=== PATIENT | male | born 1965 | race Caucasian/White ===

== ENCOUNTER 2017-05-12 05:24 | Emergency (ER) | payer BC, OTHER ==
[2017-05-12 05:35] VITALS: BP 143/90; PULSE 82; TEMP 97.8; O2SAT 99
--- NOTE | 2017-05-12 05:54 | C.PDOC ---
History Of Present Illness 51 year old male with PMHx of chronic back pain presents to the ED c/o intermittent lower back pain for the past 3 days. Patient reports he exacerbated his back pain after lifting a heavy water case. Patient denies trauma, bowel incontinence, urinary incontinence, saddle anesthesia, weakness, numbness. Time Seen by Provider: 05/12/17 05:45 Chief Complaint (Nursing): Back Pain History Per: Patient History/Exam Limitations: no limitations Onset/Duration Of Symptoms: Days Current Symptoms Are (Timing): Still Present Quality Of Discomfort: "Pain" Previous Symptoms: Back Pain Exacerbating Factor(s): Movement Recent travel outside of the [place]: No Additional History Per: Patient Past Medical History Reviewed: Historical Data, Nursing Documentation, Vital Signs Vital Signs: Last Vital Signs Temp 97.8 F 05/12/17 05:34 Pulse 82 05/12/17 05:34 Resp 18 05/12/17 05:34 BP 143/90 05/12/17 05:34 Pulse Ox 99 05/12/17 06:02 - Medical History PMH: No Chronic Diseases Surgical History: Appendectomy Family History: States: No Known Family Hx - Social History Hx Alcohol Use: No Hx Substance Use: No - Immunization History Hx Tetanus Toxoid Vaccination: No Hx Influenza Vaccination: No Hx Pneumococcal Vaccination: No Review Of Systems Constitutional: Negative for: Fever, Chills Musculoskeletal: Positive for: Back Pain Neurological: Negative for: Weakness, Numbness Physical Exam - Physical Exam Appears: Non-toxic, No Acute Distress Skin: Normal Color, Warm, Dry Head: Atraumatic, Normacephalic Eye(s): bilateral: Normal Inspection, PERRL Nose: No Discharge Oral Mucosa: Moist Neck: Normal ROM, Supple Chest: Symmetrical Cardiovascular: Rhythm Regular, No Murmur Respiratory: Normal Breath Sounds, No Rales, No Rhonchi, No Wheezing Gastrointestinal/Abdominal: Soft, No Tenderness, No Guarding, No Rebound Back: Paraspinal Tenderness (Lumbar), Straight Leg Raising (positive B/L at 35 degrees) Extremity: Normal ROM, No Tenderness, No Swelling Neurological/Psych: Oriented x3, Normal Motor, Normal Sensation Gait: Other (with a limp) ED Course And Treatment O2 Sat by Pulse Oximetry: 99 (On RA) Pulse Ox Interpretation: Normal Progress Note: Plan: - Toradol 30 mg IM. - Valium 5 mg PO. On reassessment, patient is resting comfortably, with improvement of back pain. VSS, with no bony tenderness, extremity numbness or weakness, or abdominal pain. Patient is ambulatory in the emergency department with no signs of discomfort. Patient was advised to follow up with physician/clinic in 1-2 days.Return precautions discussed Reassessment Condition: Improved Disposition Counseled Patient/Family Regarding: Diagnosis, Need For Followup, Rx Given - Disposition Disposition: HOME/ ROUTINE Disposition Time: 05:53 Condition: STABLE Additional Instructions: Please follow up with PMD Take meds as directed Return to ER if worse Prescriptions: diaZEpam [Valium] 5 mg PO TID #10 tab Ibuprofen [Motrin] 600 mg PO Q6H #24 tab Instructions: Lumbar Muscle Strain (DC) Forms: [facility] (Indonesian), Work Excuse - Clinical Impression Clinical Impression: Low back strain - PA / SUPERINTENDENT MENAGERIE / Resident Statement MD/DO has reviewed & agrees with the documentation as recorded. - Scribe Statement The provider has reviewed the documentation as recorded by the Scribe Amor Candelaria All medical record entries made by the Scribmatthew were at my direction and personally dictated by me. I have reviewed the chart and agree that the record accurately reflects my personal performance of the history, physical exam, medical decision making, and the department course for this patient. I have also personally directed, reviewed, and agree with the discharge instructions and disposition.
[2017-05-12 06:51] VITALS: RESP 20
== END 2017-05-12 06:50 | disposition home or self-care (01) ==
LOC: C.ER 05:24
DX: S39.012A Strain of muscle, fascia and tendon of lower back, initial encounter (principal); X50.9XXA Other and unspecified overexertion or strenuous movements or postures, initial encounter
CPT/HCPCS: 96372; 99282; J1885

== ENCOUNTER 2017-05-15 19:05 | Emergency (ER) | payer BC, OTHER ==
[2017-05-15 19:22] VITALS: RESP 20
--- NOTE | 2017-05-15 20:07 | C.PDOC ---
History Of Present Illness 51 y/o male presents to the ED for evaluation of worsening back pain. Of note, patient was seen by his primary Dr. Rivas for abdominal discomfort 2 weeks ago, diagnosed with colitis, and treated with flagyl. Symptoms then improved. Then last patient lifted a heavy box and felt sudden on set of lower back pain. The pain progressed over the next few days, and patient was seen here Saturday and treated with anti-inflammatory medication and muscle relaxers. Since then, patient reports worsening pain. States he is hardly able to move at all and it takes him 30 min to get up from bed and reach the bathroom nearby. Pain is now radiating into his left leg. Also feels constipated. No urinary/stool incontinence, numbness, or tingling. In addition, patient complains his abdomen is starting to feel distended. He has no abdominal pain, nausea, vomiting, or diarrhea. Time Seen by Provider: 05/15/17 19:53 Chief Complaint (Nursing): Back Pain History Per: Patient History/Exam Limitations: no limitations Onset/Duration Of Symptoms: Days (x7) Current Symptoms Are (Timing): Still Present Quality Of Discomfort: "Pain" Exacerbating Factor(s): Movement Past Medical History Reviewed: Historical Data, Nursing Documentation, Vital Signs Vital Signs: Last Vital Signs Temp 98.7 F 05/15/17 19:12 Pulse 94 H 05/15/17 19:12 Resp 20 05/15/17 19:12 BP 131/85 05/15/17 19:12 Pulse Ox 99 05/15/17 21:56 - Medical History PMH: No Chronic Diseases Surgical History: Appendectomy Family History: States: No Known Family Hx - Social History Hx Alcohol Use: No Hx Substance Use: No - Immunization History Hx Tetanus Toxoid Vaccination: No Hx Influenza Vaccination: No Hx Pneumococcal Vaccination: No Review Of Systems Gastrointestinal: Positive for: Constipation, Other (distension). Negative for : Nausea, Vomiting, Abdominal Pain, Diarrhea Genitourinary: Negative for: Dysuria, Incontinence, Hematuria Musculoskeletal: Positive for: Back Pain Neurological: Negative for: Weakness, Numbness (and tingling) Physical Exam - Physical Exam Appears: Other (Patient examined while laying down; any attempt at movement causes discomfort) Skin: Normal Color, Warm, Dry Head: Atraumatic, Normacephalic Eye(s): bilateral: Normal Inspection, PERRL, EOMI Oral Mucosa: Moist Neck: Normal ROM, Supple Chest: Symmetrical Cardiovascular: Rhythm Regular, No Murmur Respiratory: Normal Breath Sounds, No Rales, No Rhonchi, No Wheezing Gastrointestinal/Abdominal: No Tenderness, Distention, No Guarding Back: No Vertebral Tenderness, Straight Leg Raising (positive at 45 degrees, bilaterally) Pulses: Left Dorsalis Pedis: Normal, Right Dorsalis Pedis: Normal Neurological/Psych: Oriented x3, Normal Speech, Normal Sensation, Other (DTRs intact, Babinski normal bilaterally, normal extension of great toes) Gait: Unable To Assess ED Course And Treatment - Laboratory Results Result Diagrams: 05/15/17 20:21 05/15/17 20:21 Lab Interpretation: Normal O2 Sat by Pulse Oximetry: 99 (RA) Pulse Ox Interpretation: Normal - CT Scan/US CT Lumbar Spine Other Rad Studies (CT/US): Read By Radiologist, Radiology Report Reviewed CT/US Interpretation: FINDINGS: Vertebrae: Unremarkable. No acute fracture. Discs/spinal canal/neural foramina: No focal disc protrusion is seen. Secondary to combination of. facet disease, ligamentum flavum thickening, and degenerative disc disease, there is moderate spinal. stenosis seen at L2-L3. There is moderate intervertebral disc height loss and adjacent sclerosis. associated with L2-L3. Soft tissues: No paraspinal soft tissue inflammatory changes are seen. Kidneys and ureters: Moderate bilateral pelvocaliectasis and hydroureter to do to prominent urinary. bladder. Bladder: The bladder is moderately distended. IMPRESSION: There is moderate degenerative changes most pronounced L2-L3 causing moderate spinal stenosis,. no disc protrusion is seen. No acute fractures are present. Distended urinary bladder causing mild bilateral hydronephrosis. Thank you for allowing us to participate in the care of your patient. Dictated and Authenticated by: Denis Wilson MD. 2017 9:47 PM Eastern Time ([place] & [place]) Reevaluation Time: 22:03 Reassessment Condition: Improved (after Toradol) Medical Decision Making Medical Decision Making: Time: 20:02 Initial Plan: * CMP * CBC * Urinalysis * CT lumbar spine * 30 mg Toradol IM * Reevaluation Disposition Counseled Patient/Family Regarding: Studies Performed, Diagnosis, Need For Followup, Rx Given - Disposition Referrals: Kade Gallagher III, MD [Staff Provider] - Disposition: HOME/ ROUTINE Disposition Time: 22:05 Condition: IMPROVED Prescriptions: Cyclobenzaprine [Cyclobenzaprine HCl] 10 mg PO TID PRN #30 tab PRN Reason: Pain, Severe (8-10) Prednisone 50 mg PO DAILY #7 tab Instructions: Spinal Stenosis Forms: [facility] (Chinese) - Clinical Impression Clinical Impression: Spinal stenosis of lumbar region - Scribe Statement The provider has reviewed the documentation as recorded by the Scribe (Linnea Ivy) Provider Attestation: All medical record entries made by the Scribe were at my direction and personally dictated by me. I have reviewed the chart and agree that the record accurately reflects my personal performance of the history, physical exam, medical decision making, and the department course for this patient. I have also personally directed, reviewed, and agree with the discharge instructions and disposition.
[2017-05-15 20:27] LABS: BASO % 0.5 % (0.0-2.0); EOS # 0.1 K/uL (0.0-0.7); EOS % 1.2 % (0.0-4.0); HEMOGLOBIN 12.9 g/dL (12.0-18.0); LYMPH # 1.5 K/uL (1.0-4.3); LYMPH % 17.6 % (20.0-40.0); MEAN CELL VOLUME 91.7 fL (80.0-94.0); MEAN CORPUSCULAR HEMOGLOBIN 31.3 pg (27.0-31.0); MEAN CORPUSCULAR HGB CONC 34.1 g/dL (33.0-37.0); MEAN PLATELET VOLUME 7.9 fL (7.2-11.7); MONO # 0.9 K/uL (0.0-0.8); MONO % 10.8 % (0.0-10.0); NEUT # 5.9 K/uL (1.8-7.0); NEUT % 69.9 % (50.0-75.0); RBC 4.11 Mil/uL (4.40-5.90); RED CELL DISTRIBUTION WIDTH 13.5 % (11.5-14.5); WHITE BLOOD COUNT 8.4 K/uL (4.8-10.8)
[2017-05-15 20:29] LABS: URINE BILIRUBIN NEGATIVE (NEGATIVE); URINE CLARITY Clear (Clear); URINE COLOR Colorless (YELLOW); URINE GLUCOSE (UA) NORMAL (Normal); URINE LEUKOCYTE ESTERASE NEG Leu/uL (Negative); URINE PROTEIN NEGATIVE (NEGATIVE); URINE UROBILINOGEN NORMAL mg/dL (0.2-1.0)
[2017-05-15 20:37] LABS: URINE BLOOD NEGATIVE (NEGATIVE)
[2017-05-15 20:40] LABS: ALB/GLOB RATIO 1.2 (1.0-2.1); ALT/SGPT 28 U/L (21-72); AST/SGOT 39 U/L (17-59); BLOOD UREA NITROGEN 8 mg/dL (9-20); CALCIUM 9.2 mg/dl (8.6-10.4); GFR AFRICAN-AMERICAN > 60; GFR NON-AFRICAN AMERICAN > 60
[2017-05-15 22:18] VITALS: BP 108/71; PULSE 91; TEMP 97.6; O2SAT 98
--- NOTE | 2017-05-16 09:20 | CT ---
CT lumbar spine History: Lumbar pain with radiculopathy. Comparison: None available. Technique: Multiple contiguous axial images were performed through the lumbar spine without the use of intravenous contrast. Subsequently, sagittal and coronal reformatted images were obtained. This CT exam was performed using one or more of the following dose reduction techniques: Automated exposure control, adjustment of the mA and/or kV according to patient size, and/or use of iterative reconstruction technique. Findings: Question minimal retrolisthesis of L2 on L3. Disc space narrowing with endplate reactive changes as well as Schmorl's node formation noted at the inferior endplate of the L2 vertebral body. Mild anterior osteophyte formation at the L2-3 level. At that level there is a suggestion of a posterior disc bulge. Suggestion of moderate spinal canal stenosis at the L2-3 level. This would be better evaluated with MRI. Facet hypertrophic changes most pronounced at the L4-5 level. Moderate bilateral pelvocaliectasis and hydroureter possibly secondary to a prominent urinary bladder. Urinary bladder moderately distended. Mild bridging of the bilateral SI joints. Impression: Moderate degenerative changes of the lumbar spine as described above most pronounced at the L2-3 level with resultant moderate spinal canal stenosis. Correlation with lumbar spine MRI is recommended if clinically indicated. Distended urinary bladder with resultant mild bilateral hydronephrosis. These findings were preliminarily reported at 9:47 p.m. on 05/15/[address] Denis Wilson from [facility].
== END 2017-05-15 22:43 | disposition home or self-care (01) ==
LOC: C.ER 19:05
DX: M48.061 Spinal stenosis, lumbar region without neurogenic claudication (principal)
CPT/HCPCS: 72131; 80053; 81001; 85025; 96374; 99284; J1885

== ENCOUNTER 2017-06-04 17:59 | Inpatient (IN) | payer BC, OTHER ==
--- NOTE | 2017-06-04 18:58 | C.PDOC ---
History Of Present Illness 51 year old male presents to the ED with persistent right lower back pain for the last 6 months. Patient had a CT scan on 05/15 that showed minimal spinal stenosis at the level of L2-L3. Patient and have brought radiology report from outpatient MRI done today that showed discitis and osteomyelitis at L2-L3 with possible small ventral epidural abscess. Patient denies weakness, numbness , injury, fall, trauma, headache, dizziness. No h/o IVDA, no h/o TB Time Seen by Provider: 06/04/17 18:20 Chief Complaint (Nursing): Abnormal Labs History Per: Patient History/Exam Limitations: no limitations Onset/Duration Of Symptoms: Days Current Symptoms Are (Timing): Still Present Recent travel outside of the [place]: No Additional History Per: Patient Past Medical History Reviewed: Historical Data, Nursing Documentation, Vital Signs Vital Signs: Last Vital Signs Temp 97.7 F 06/04/17 20:59 Pulse 108 H 06/04/17 20:59 Resp 20 06/04/17 20:59 BP 146/97 H 06/04/17 20:59 Pulse Ox 100 06/04/17 23:53 - Medical History PMH: No Chronic Diseases Surgical History: Appendectomy Family History: States: No Known Family Hx - Social History Hx Alcohol Use: No Hx Substance Use: No - Immunization History Hx Tetanus Toxoid Vaccination: No Hx Influenza Vaccination: No Hx Pneumococcal Vaccination: No Review Of Systems Constitutional: Negative for: Fever, Chills Cardiovascular: Negative for: Chest Pain Respiratory: Negative for: Shortness of Breath Gastrointestinal: Negative for: Abdominal Pain Musculoskeletal: Positive for: Back Pain Skin: Negative for: Rash Neurological: Negative for: Weakness, Numbness Physical Exam - Physical Exam Appears: Non-toxic, No Acute Distress Skin: Normal Color, Warm, Dry Head: Atraumatic, Normacephalic Eye(s): bilateral: Normal Inspection Nose: No Discharge Oral Mucosa: Moist Neck: Normal ROM, Supple Chest: Symmetrical Cardiovascular: Rhythm Regular, No Murmur Respiratory: Normal Breath Sounds, No Rales, No Rhonchi, No Wheezing Gastrointestinal/Abdominal: Soft, No Tenderness, No Guarding, No Rebound Back: Other (positive digital tenderness at level L2-L3) Extremity: Normal ROM, No Tenderness, Capillary Refill (< 2 seconds), No Swelling Extremity: Bilateral: Normal Color And Temperature, Normal ROM Pulses: Left Dorsalis Pedis: Normal, Right Dorsalis Pedis: Normal Neurological/Psych: Oriented x3, Normal Motor, Normal Sensation, Normal Reflexes Gait: Steady ED Course And Treatment - Laboratory Results Result Diagrams: 06/04/17 19:12 06/04/17 19:12 ECG: Interpreted By Me, Viewed By Me ECG Rhythm: Sinus Tachycardia Rate From EC (BPM) O2 Sat by Pulse Oximetry: 100 (ON RA) Pulse Ox Interpretation: Normal - Radiology CXR: Interpreted by Me, Viewed By Me CXR Interpretation: No: No Acute Disease Progress Note: toradol, Tramadol PO. d/w Dr. He, ID, recommends Cefipime, Vanco. Will consult. Reevaluation Time: 20:00 Reassessment Condition: Improved Medical Decision Making Medical Decision Making: Plan: * CXR * EKG * Labs * Toradol 30 mg IVP * Ultram 50 mg PO * Vancomycin 1 gm in 200 ml * Blood culture * UA 18:30- Discussed case with Raul Rivas who recommended admission under Dr. Zane Knutson service. Communicated with Dr. Stephenson neurosurgery who will be on consult and recommended Dr. He for ID. 19:36 - called Dr. He for consult. Disposition Doctor Will See Patient In The: Hospital Counseled Patient/Family Regarding: Studies Performed, Diagnosis - Disposition Disposition: HOSPITALIZED Disposition Time: 19:25 Condition: GOOD - Clinical Impression Clinical Impression: Osteomyelitis of lumbar vertebra - Scribe Statement The provider has reviewed the documentation as recorded by the Scribe Amor Candelaria All medical record entries made by the Scribe were at my direction and personally dictated by me. I have reviewed the chart and agree that the record accurately reflects my personal performance of the history, physical exam, medical decision making, and the department course for this patient. I have also personally directed, reviewed, and agree with the discharge instructions and disposition.
[2017-06-04 19:15] LABS: BASO % 0.5 % (0.0-2.0); EOS # 0.1 K/uL (0.0-0.7); EOS % 1.2 % (0.0-4.0); HEMOGLOBIN 13.6 g/dL (12.0-18.0); LYMPH # 1.4 K/uL (1.0-4.3); MEAN CELL VOLUME 89.2 fL (80.0-94.0); MEAN CORPUSCULAR HEMOGLOBIN 30.4 pg (27.0-31.0); MEAN CORPUSCULAR HGB CONC 34.1 g/dL (33.0-37.0); MEAN PLATELET VOLUME 7.5 fL (7.2-11.7); MONO # 0.6 K/uL (0.0-0.8); MONO % 7.3 % (0.0-10.0); NEUT # 6.5 K/uL (1.8-7.0); RBC 4.48 Mil/uL (4.40-5.90); RED CELL DISTRIBUTION WIDTH 13.4 % (11.5-14.5); WHITE BLOOD COUNT 8.6 K/uL (4.8-10.8)
[2017-06-04 19:21] LABS: URINE BILIRUBIN NEGATIVE (NEGATIVE); URINE BLOOD 1+ (NEGATIVE); URINE CLARITY Clear (Clear); URINE COLOR Colorless (YELLOW); URINE GLUCOSE (UA) NORMAL (Normal); URINE LEUKOCYTE ESTERASE NEG Leu/uL (Negative); URINE PROTEIN NEGATIVE (NEGATIVE); URINE UROBILINOGEN NORMAL mg/dL (0.2-1.0)
[2017-06-04] MEDS ORDERED: Vancomycin 1 GM 1 GM/250 ML BAG IV STA (19:21)
[2017-06-04 19:24] LABS: INR 1.3; PROTHROMBIN TIME 14.9 SECONDS (9.7-12.2)
[2017-06-04] MEDS ORDERED: Vancomycin 1 gm/NS 200 ml 1 GM/200 ML BAG IVPB STA (19:28)
[2017-06-04 19:32] LABS: ALB/GLOB RATIO 1.1 (1.0-2.1); ALBUMIN 4.1 g/dL (3.5-5.0); ALT/SGPT 25 U/L (21-72); AST/SGOT 26 U/L (17-59); BLOOD UREA NITROGEN 9 mg/dL (9-20); CALCIUM 9.3 mg/dl (8.6-10.4); GFR AFRICAN-AMERICAN > 60; GFR NON-AFRICAN AMERICAN > 60
[2017-06-04] MEDS ORDERED: Cefepime IV 1 gm in Dextrose 1 GM/50 ML BAG IVPB STA (20:27)
--- NOTE | 2017-06-04 23:25 | CP.PCM.HP ---
History of Present Illness - History of Present Illness History of Present Illness: 51 yo M with no known significant PMH presents to ED accompanied with , with c/o persistent right lower back pain ongoing since six months. Pt denies fever, chills, chest pain, sob, n/v/d, abdominal pain, dizziness, headache, dysuria, injury or trauma. Denies h/o TB or iVDA. Pt had done an outpatient MRI today with report brought with him which notes discitis and osteomyelitis at L2- L3 with possible small ventral epidural abscess. Per pt, an earlier CT scan done 05/15 noted minimal spinal stenosis at L2-L3 level. Present on Admission - Present on Admission Any Indicators Present on Admission: No Review of Systems - Musculoskeletal Musculoskeletal: Back Pain Past Patient History - Infectious Disease Hx of Infectious Diseases: None - Past Medical History & Family History Past Medical History?: No - Past Social History Smoking Status: Never Smoked - MUSCULOSKELETAL/RHEUMATOLOGICAL Hx Falls: No - PSYCHIATRIC Hx Substance Use: No - SURGICAL HISTORY Hx Surgeries: Yes Hx Appendectomy: Yes - ANESTHESIA Hx Anesthesia: Yes Hx Anesthesia Reactions: No Hx Malignant Hyperthermia: No Meds Allergies/Adverse Reactions: Allergies Allergy/AdvReac Type Severity Reaction Status Date / Time No Known Allergies Allergy Verified 06/04/17 18:12 Results - Vital Signs Recent Vital Signs: Last Vital Signs Temp 97.7 F 06/04/17 20:59 Pulse 108 H 06/04/17 20:59 Resp 20 06/04/17 20:59 BP 146/97 H 06/04/17 20:59 Pulse Ox 100 06/04/17 20:59 - Labs Result Diagrams: 06/04/17 19:12 06/04/17 19:12 Labs: Laboratory Results - last 24 hr 06/04/17 06/04/17 06/04/17 19:12 19:12 19:12 WBC 8.6 RBC 4.48 Hgb 13.6 Hct 40.0 MCV 89.2 D MCH 30.4 MCHC 34.1 RDW 13.4 Plt Count 439 H D MPV 7.5 Neut % (Auto) 75.0 Lymph % (Auto) 16.0 L [place] % (Auto) 7.3 Eos % (Auto) 1.2 Baso % (Auto) 0.5 Neut # (Auto) 6.5 Lymph # (Auto) 1.4 [place] # (Auto) 0.6 Eos # (Auto) 0.1 Baso # (Auto) 0.0 ESR 65 H PT 14.9 H INR 1.3 APTT 34 Sodium Potassium Chloride Carbon Dioxide Anion Gap BUN Creatinine Est GFR ( Amer) Est GFR (Non-Af Amer) Random Glucose Calcium Total Bilirubin AST ALT Alkaline Phosphatase C-Reactive Protein Total Protein Albumin Globulin Albumin/Globulin Ratio Urine Color Colorless Urine Clarity Clear Urine pH 7.0 Ur Specific [place] 1.002 L Urine Protein Negative Urine Glucose (UA) Normal Urine Ketones Negative Urine Blood 1+ H Urine Nitrate Negative Urine Bilirubin Negative Urine Urobilinogen Normal Ur Leukocyte Esterase Neg 06/04/17 19:12 WBC RBC Hgb Hct MCV MCH MCHC RDW Plt Count MPV Neut % (Auto) Lymph % (Auto) [place] % (Auto) Eos % (Auto) Baso % (Auto) Neut # (Auto) Lymph # (Auto) [place] # (Auto) Eos # (Auto) Baso # (Auto) ESR PT INR APTT Sodium 137 Potassium 3.9 Chloride 93 L Carbon Dioxide 28 Anion Gap 20 BUN 9 Creatinine 0.8 Est GFR ( Amer) > 60 Est GFR (Non-Af Amer) > 60 Random Glucose 131 H Calcium 9.3 Total Bilirubin 0.6 AST 26 ALT 25 Alkaline Phosphatase 74 C-Reactive Protein 23.50 H Total Protein 7.8 Albumin 4.1 Globulin 3.7 Albumin/Globulin Ratio 1.1 Urine Color Urine Clarity Urine pH Ur Specific [place] Urine Protein Urine Glucose (UA) Urine Ketones Urine Blood Urine Nitrate Urine Bilirubin Urine Urobilinogen Ur Leukocyte Esterase Assessment & Plan (1) Osteomyelitis of lumbar vertebra Status: Acute (2) Low back strain Status: Acute (3) Spinal stenosis of lumbar region Status: Acute - Assessment and Plan (Free Text) Plan: BCx iv abx ID Dr He Neuro Dr Kam Casanova pain management f/u labs f/u imaging meds as ordered regular diet
[2017-06-05] MEDS: Vancomycin 1 gm/NS 200 ml 1 GM/200 ML BAG IVPB SCH ×3 (04:45→19:55)
[2017-06-05] MEDS: Cefepime IV 1 gm in Dextrose 1 GM/50 ML BAG IVPB SCH ×3 (06:30→21:29)
--- NOTE | 2017-06-05 07:30 | RAD ---
Chest x-ray single frontal view History: Shortness of breath. Comparison: None available. Findings: Mild venous congestion. Right hilar prominence. Heart size within normal limits. Impression: Mild venous congestion. Right hilar prominence.
--- NOTE | 2017-06-05 10:04 | CP.PCM.PN ---
Subjective - Date & Time of Evaluation Date of Evaluation: 06/05/17 Time of Evaluation: 09:58 - Subjective Subjective: PGY2 progress note for Dr. Knutson 51 year old male with no significant past medical history presented to hospital for severe low back pain. Patient states that back pain began on 05/10/17 ( about 25 days ago) after he lifted something heavy. He states that since that day, pain has been severe. Pt followed with ortho, Dr. Gallego who recommended PT, CT of lumbar spine, muscle relaxers and pain management. All of these methods failed to help his pain so pt was asked ot get MRI of lumbar spine. Pt states that he had MRI of lumbar spine done yesterday (brought the report and disc with him) and he was then told to go to ED. MRI showed osteomyelitis of L2 -L3 with possible spinal abscess. Pain is located in lower lumbar region and radiates around to the hips and abdomen bilaterally. Pain does not radiate down the legs. Pt denies having any numbness, tingling, weakness in his extremities. Denies having any bowel or bladder incontinence. Patient denies having any F/C, abd pain, N/V/D/C, CP, SOB. Pt is ambulating without difficulty. PMHx: stated above Sx: appendectomy, Meckel's diverticulum repair (both done at same time) Social: Denies tobacco, ETOH or drug use Meds: see MAR Objective - Vital Signs/Intake and Output Vital Signs (last 24 hours): Temp Pulse Resp BP Pulse Ox 97.7 F 89 20 135/82 98 06/05/17 07:58 06/05/17 07:58 06/05/17 07:58 06/05/17 07:58 06/05/17 07:58 Intake and Output: 06/05/17 06/05/17 06:59 18:59 Intake Total 550 Balance 550 - Medications Medications: Current Medications Cyclobenzaprine HCl (Flexeril) 10 mg PO TID PRN PRN Reason: Pain, severe (8-10) Last Admin: 06/05/17 09:15 Dose: 10 mg Docusate Sodium (Colace) 100 mg PO BID [facility] Last Admin: 06/05/17 09:42 Dose: 100 mg Heparin Sodium (Porcine) (Heparin) 5,000 units SC Q12 [facility] Last Admin: 06/05/17 09:15 Dose: 5,000 units Vancomycin/Sodium Chloride (Vancomycin 1 Gm/Ns 200 Ml) 1 gm in 200 mls @ 133 mls/hr IVPB Q8H NETO PRN Reason: Protocol Stop: 06/10/17 04:01 Last Admin: 06/05/17 04:45 Dose: 133 mls/hr Cefepime HCl (Maxipime Iv 1 Gm Premix) 1 gm in 50 mls @ 100 mls/hr IVPB Q8 NETO PRN Reason: Protocol Last Admin: 06/05/17 06:30 Dose: 100 mls/hr Pneumococcal Polyvalent Vaccine (Pneumovax 23 Vaccine) 0.5 ml IM .ONCE ONE Stop: 06/06/17 10:01 - Labs Labs: 06/04/17 19:12 06/04/17 19:12 PT 14.9 SECONDS (9.7-12.2) H 06/04/17 19:12 INR 1.3 06/04/17 19:12 APTT 34 SECONDS (21-34) 06/04/17 19:12 - Constitutional Appears: Non-toxic, No Acute Distress - Head Exam Head Exam: ATRAUMATIC - Eye Exam Pupil Exam: PERRL - ENT Exam ENT Exam: Mucous Membranes Moist - Respiratory Exam Respiratory Exam: Clear to Ausculation Bilateral. absent: Accessory Muscle Use , Rales, Rhonchi, Wheezes, Respiratory Distress - Cardiovascular Exam Cardiovascular Exam: REGULAR RHYTHM, +S1, +S2. absent: Gallop, Rubs, Murmur - GI/Abdominal Exam GI & Abdominal Exam: Distended, Soft, Normal Bowel Sounds. absent: Firm, Guarding, Rigid, Tenderness, Organomegaly - Extremities Exam Extremities Exam: absent: Pedal Edema, Tenderness - Back Exam Back Exam: absent: CVA tenderness (L), CVA tenderness (R), muscle spasm, paraspinal tenderness, rash noted, tenderness, vertebral tenderness - Neurological Exam Neurological Exam: Alert, Awake, CN II-XII Intact, Oriented x3. absent: Motor Sensory Deficit Neuro motor strength exam: Left Upper Extremity: 5, Right Upper Extremity: 5, Left Lower Extremity: 5, Right Lower Extremity: 5 Additional comments: sensation in tact in upper and lower extremities - Psychiatric Exam Psychiatric exam: Normal Affect, Normal Mood - Skin Skin Exam: Dry, Intact, Normal Color, Warm Assessment and Plan - Assessment and Plan (Free Text) Assessment: 51 year old male with no significant past medical history is admitted for osteomyelitis of L2-L3 and possible spinal abscess Osteomyelitis of L2-L3 with spinal abscess - MRI of lumbar spine done on 06/04/17: "Findings suspicious for discitis and osteomyelitis at L2-L3 with possible small ventral epidural abscess in the left anterolateral recess. There is mild bilateral foramen narrowing at this level. " MRI disc in patient's paper chart. - ESR and CRP both elevated on presentation - Neurosx, Dr. Stephenson is consulted. Awaiting recs - ID, Dr. He is consulted. Recommend getting echo to locate source of infection - Pt is started on Cefepime and Vancomycin - Will continue Flexril 10 mg po TID - blood cultures pending - Echo ordered - Will check HIV Prophylaxis - Pepcid 20 mg po qd - Heparin SC q12 - SCDs Case will be discussed with Dr. Knutson. All orders and management per Dr. Knutson
[2017-06-05 11:01] LABS: BASO # 0.1 K/uL (0.0-0.2); BASO % 0.6 % (0.0-2.0); EOS # 0.1 K/uL (0.0-0.7); EOS % 0.7 % (0.0-4.0); LYMPH # 1.1 K/uL (1.0-4.3); LYMPH % 12.3 % (20.0-40.0); MEAN CELL VOLUME 90.2 fL (80.0-94.0); MEAN CORPUSCULAR HEMOGLOBIN 30.6 pg (27.0-31.0); MEAN CORPUSCULAR HGB CONC 33.9 g/dL (33.0-37.0); MEAN PLATELET VOLUME 7.4 fL (7.2-11.7); MONO # 0.7 K/uL (0.0-0.8); MONO % 7.4 % (0.0-10.0); NEUT # 7.2 K/uL (1.8-7.0); RBC 4.56 Mil/uL (4.40-5.90); RED CELL DISTRIBUTION WIDTH 13.4 % (11.5-14.5); WHITE BLOOD COUNT 9.2 K/uL (4.8-10.8)
[2017-06-05 11:30] LABS: ALB/GLOB RATIO 1.1 (1.0-2.1); ALBUMIN 4.2 g/dL (3.5-5.0); ALT/SGPT 22 U/L (21-72); AST/SGOT 27 U/L (17-59); BLOOD UREA NITROGEN 6 mg/dL (9-20); CALCIUM 9.3 mg/dl (8.6-10.4); GFR AFRICAN-AMERICAN > 60; GFR NON-AFRICAN AMERICAN > 60
--- NOTE | 2017-06-05 16:54 | CP.PCM.PN ---
Subjective - Date & Time of Evaluation Date of Evaluation: 06/05/17 Time of Evaluation: 07:20 - Subjective Subjective: 51 year old male with no significant past medical history presented to hospital for severe low back pain. Patient states that back pain began on 05/10/17 ( about 25 days ago) after he lifted something heavy. He states that since that day, pain has been severe. Pt followed with ortho, Dr. Gallego who recommended PT, CT of lumbar spine, muscle relaxers and pain management. All of these methods failed to help his pain so pt was asked ot get MRI of lumbar spine. Pt states that he had MRI of lumbar spine done yesterday (brought the report and disc with him) and he was then told to go to ED. MRI showed osteomyelitis of L2 -L3 with possible spinal abscess. Pain is located in lower lumbar region and radiates around to the hips and abdomen bilaterally. Pain does not radiate down the legs. Pt denies having any numbness, tingling, weakness in his extremities. Denies having any bowel or bladder incontinence. Patient denies having any F/C, abd pain, N/V/D/C, CP, SOB. Pt is ambulating without difficulty. Objective - Vital Signs/Intake and Output Vital Signs (last 24 hours): Temp Pulse Resp BP Pulse Ox 97.4 F L 104 H 20 135/92 H 98 06/05/17 15:00 06/05/17 15:00 06/05/17 15:00 06/05/17 15:00 06/05/17 15:00 Intake and Output: 06/05/17 06/05/17 06:59 18:59 Intake Total 550 980 Balance 550 980 - Medications Medications: Current Medications Cyclobenzaprine HCl (Flexeril) 10 mg PO TID PRN PRN Reason: Pain, severe (8-10) Last Admin: 06/05/17 09:15 Dose: 10 mg Docusate Sodium (Colace) 100 mg PO BID [facility] Last Admin: 06/05/17 09:42 Dose: 100 mg Famotidine (Pepcid) 20 mg PO DAILY [facility] Last Admin: 06/05/17 11:12 Dose: 20 mg Heparin Sodium (Porcine) (Heparin) 5,000 units SC Q12 [facility] Last Admin: 06/05/17 09:15 Dose: 5,000 units Vancomycin/Sodium Chloride (Vancomycin 1 Gm/Ns 200 Ml) 1 gm in 200 mls @ 133 mls/hr IVPB Q8H [facility]O PRN Reason: Protocol Stop: 06/10/17 04:01 Last Admin: 06/05/17 11:12 Dose: 133 mls/hr Cefepime HCl (Maxipime Iv 1 Gm Premix) 1 gm in 50 mls @ 100 mls/hr IVPB Q8 [facility] PRN Reason: Protocol Last Admin: 06/05/17 13:56 Dose: 100 mls/hr Pneumococcal Polyvalent Vaccine (Pneumovax 23 Vaccine) 0.5 ml IM .ONCE ONE Stop: 06/06/17 10:01 Tramadol HCl (Ultram) 50 mg PO TID PRN PRN Reason: Pain, moderate (4-7) Last Admin: 06/05/17 12:21 Dose: 50 mg - Labs Labs: 06/05/17 10:57 06/05/17 10:57 PT 14.9 SECONDS (9.7-12.2) H 06/04/17 19:12 INR 1.3 06/04/17 19:12 APTT 34 SECONDS (21-34) 06/04/17 19:12 - Constitutional Appears: Well - Head Exam Head Exam: ATRAUMATIC, NORMAL INSPECTION, NORMOCEPHALIC - Eye Exam Eye Exam: EOMI, Normal appearance, PERRL Pupil Exam: NORMAL ACCOMODATION, PERRL - ENT Exam ENT Exam: Mucous Membranes Moist, Normal Exam - Neck Exam Neck Exam: Full ROM, Normal Inspection. absent: Lymphadenopathy - Respiratory Exam Respiratory Exam: Decreased Breath Sounds - Cardiovascular Exam Cardiovascular Exam: REGULAR RHYTHM, +S1, +S2 - GI/Abdominal Exam GI & Abdominal Exam: Soft, Diminished Bowel Sounds - Rectal Exam Rectal Exam: Deferred Assessment and Plan (1) Osteomyelitis of lumbar vertebra Status: Acute (2) Low back strain Status: Acute (3) Spinal stenosis of lumbar region Status: Acute - Assessment and Plan (Free Text) Plan: 1 year old male with no significant past medical history is admitted for osteomyelitis of L2-L3 and possible spinal abscess Osteomyelitis of L2-L3 with spinal abscess - MRI of lumbar spine done on 06/04/17: "Findings suspicious for discitis and osteomyelitis at L2-L3 with possible small ventral epidural abscess in the left anterolateral recess. There is mild bilateral foramen narrowing at this level. " MRI disc in patient's paper chart. - ESR and CRP both elevated on presentation - Neurosx, Dr. Stephenson is consulted. Awaiting recs - ID, Dr. He is consulted. Recommend getting echo to locate source of infection - Pt is started on Cefepime and Vancomycin - Will continue Flexril 10 mg po TID - blood cultures pending - Echo ordered - Will check HIV Prophylaxis - Pepcid 20 mg po qd - Heparin SC q12 - SCDs
--- NOTE | 2017-06-05 18:40 | CP.PCM.CON ---
History of Present Illness - History of Present Illness History of Present Illness: 51 year old male presents to the ED with persistent right lower back pain for the last 6 months. Patient had a CT scan on 05/15 that showed minimal spinal stenosis at the level of L2-L3. Patient and have brought radiology report from outpatient MRI done today that showed discitis and osteomyelitis at L2-L3 with possible small ventral epidural abscess. Patient denies weakness, numbness , injury, fall, trauma, headache, dizziness. No h/o IVDA, no h/o TB PMH of recurrent colitis etiology ? Denies travel recently no febrile illnesses except sinusitis [address] Fulton Review of Systems - Review of Systems All systems: reviewed and no additional remarkable complaints except - Constitutional Constitutional: As Per HPI - EENT Eyes: absent: As Per HPI, Blind Spots, Blurred Vision, Change in Vision, Decreased Night Vision, Diplopia, Discharge, Dry Eye, Exophthalmos, Floaters, Irritation, Itchy Eyes, Loss of Peripheral Vision, Pain, Photophobia, Requires Corrective Lenses, Sees Flashes, Spots in Vision, Tunnel Vision, Other Visual Disturbances, Loss of Vision, Other Ears: absent: As Per HPI, Decreased Hearing, Ear Discharge, Ear Pain, Tinnitus, Abnormal Hearing, Disequilibrium, Dizziness, Other Nose/Mouth/Throat: absent: As Per HPI, Epistaxis, Nasal Congestion, Nasal Discharge, Nasal Obstruction, Nasal Trauma, Nose Pain, Post Nasal Drip, Sinus Pain, Sinus Pressure, Bleeding Gums, Change in Voice, Dental Pain, Dry Mouth, Dysphagia, Halitosis, Hoarsness, Lip Swelling, Mouth Lesions, Mouth Pain, Odynophagia, Sore Throat, Throat Swelling, Tongue Swelling, Facial Pain, Neck Pain, Neck Mass, Other - Cardiovascular Cardiovascular: absent: As Per HPI, Acrocyanosis, Chest Pain, Chest Pain at Rest , Chest Pain with Activity, Claudication, Diaphoresis, Dyspnea, Dyspnea on Exertion, Edema, Irregular Heart Rhythm, Pain Radiating to Arm/Neck/Jaw, Leg Edema, Leg Ulcers, Lightheadedness, Orthopnea, Palpitations, Paroxysmal Nocturnal Dyspnea, Pedal Edema, Radiating Pain, Rapid Heart Rate, Slow Heart Rate, Syncope, Other - Respiratory Respiratory: absent: As Per HPI, Cough, Dyspnea, Hemoptysis, Dyspnea on Exertion , Wheezing, Snoring, Stridor, Pain on Inspiration, Chest Congestion, Excessive Mucous Production, Change in Mucous Color, Pain with Coughing, Other - Gastrointestinal Gastrointestinal: absent: As Per HPI, Abdominal Pain, Belching, Bloating, Change in Bowel Habits, Change in Stool Character, Coffee Ground Emesis, Constipation, Cramping, Diarrhea, Dyspepsia, Dysphagia, Early Satiety, Excessive Flatus, Fecal Incontinence, Heartburn, Hematemesis, Hematochezia, Loose Stools, Melena, Nausea, Odynophagia, Temesmus, Vomiting, Other - Genitourinary Genitourinary: absent: As Per HPI, Change in Urinary Stream, Difficulty Urinating, Dysuria, Flank Pain, Hematuria, Pyuria, Nocturia, Urinary Incontinence, Urinary Frequency, Urinary Hesitance, Urinary Urgency, Voiding Freq/Small Amts, Freq UTI, Hx Renal/Bladder Calculi, Hx /Renal Surgery, Bladder Distension, Other - Musculoskeletal Musculoskeletal: As Per HPI - Integumentary Integumentary: absent: As Per HPI, Acne, Alopecia, Bleeding Lesions, Change in Hair, Change in Nails, Change in Pigmentation, Changing Lesions, Dry Skin, Erythema, Furuncle, Hirsutism, Lesions, New Lesions, Non-Healing Lesions, Photosensitivity, Pruritus, Rash, Skin Pain, Skin Ulcer, Sores, Striae, Swelling , Unusual Bruising, Wounds, Jaundice, Other - Neurological Neurological: As Per HPI - Psychiatric Psychiatric: absent: As Per HPI, Abnormal Sleep Pattern, Anhedonia, Anxiety, Auditory Hallucinations, Behavioral Changes, Change in Appetite, Change in Libido, Confusion, Depression, Difficulty Concentrating, Hallucinations, Homicidal Ideation, Hopelessness, Irritability, Memory Loss, Mood Swings, Panic Attacks, Paranoia, Suicidal Ideation, Visual Hallucinations, Tactile Hallucinations, Other - Endocrine Endocrine: absent: As Per HPI, Change in Body Appearance, Change in Libido, Cold Intolorance, Deepening of Voice, Excessive Sweating, Fatigue, Flushing, Heat Intolorance, Increase in Ring/Shoe/Hat Size, Palpitations, Polydipsia, Polyphagia, Polyuria, Other - Hematologic/Lymphatic Hematologic: absent: As Per HPI, Easy Bleeding, Easy Bruising, Lymphadenopathy, Other Past Patient History - Infectious Disease Hx of Infectious Diseases: None - Past Medical History & Family History Past Medical History?: No - Past Social History Smoking Status: Never Smoked - MUSCULOSKELETAL/RHEUMATOLOGICAL Hx Falls: No - PSYCHIATRIC Hx Substance Use: No - SURGICAL HISTORY Hx Surgeries: Yes Hx Appendectomy: Yes - ANESTHESIA Hx Anesthesia: Yes Hx Anesthesia Reactions: No Hx Malignant Hyperthermia: No Meds Allergies/Adverse Reactions: Allergies Allergy/AdvReac Type Severity Reaction Status Date / Time No Known Allergies Allergy Verified 06/04/17 18:12 - Medications Medications: Current Medications Cyclobenzaprine HCl (Flexeril) 10 mg PO TID PRN PRN Reason: Pain, severe (8-10) Last Admin: 06/05/17 09:15 Dose: 10 mg Docusate Sodium (Colace) 100 mg PO BID [facility] Last Admin: 06/05/17 17:53 Dose: 100 mg Famotidine (Pepcid) 20 mg PO DAILY [facility] Last Admin: 06/05/17 11:12 Dose: 20 mg Heparin Sodium (Porcine) (Heparin) 5,000 units SC Q12 [facility] Last Admin: 06/05/17 09:15 Dose: 5,000 units Vancomycin/Sodium Chloride (Vancomycin 1 Gm/Ns 200 Ml) 1 gm in 200 mls @ 133 mls/hr IVPB Q8H [facility] PRN Reason: Protocol Stop: 06/10/17 04:01 Last Admin: 06/05/17 11:12 Dose: 133 mls/hr Cefepime HCl (Maxipime Iv 1 Gm Premix) 1 gm in 50 mls @ 100 mls/hr IVPB Q8 NETO PRN Reason: Protocol Last Admin: 06/05/17 13:56 Dose: 100 mls/hr Pneumococcal Polyvalent Vaccine (Pneumovax 23 Vaccine) 0.5 ml IM .ONCE ONE Stop: 06/06/17 10:01 Tramadol HCl (Ultram) 50 mg PO TID PRN PRN Reason: Pain, moderate (4-7) Last Admin: 06/05/17 12:21 Dose: 50 mg Physical Exam - Constitutional Appears: Non-toxic, Chronically Ill - Head Exam Head Exam: NORMOCEPHALIC - Eye Exam Eye Exam: absent: Scleral icterus - ENT Exam ENT Exam: Mucous Membranes Dry, Normal External Ear Exam - Neck Exam Neck exam: Negative for: Lymphadenopathy - Respiratory Exam Respiratory Exam: Decreased Breath Sounds - Cardiovascular Exam Cardiovascular Exam: REGULAR RHYTHM - GI/Abdominal Exam GI & Abdominal Exam: Diminished Bowel Sounds, Soft. absent: Tenderness - Rectal Exam Rectal Exam: Deferred - Extremities Exam Extremities exam: Negative for: pedal edema - Back Exam Back exam: absent: CVA tenderness (L), CVA tenderness (R) - Neurological Exam Neurological exam: Alert, CN II-XII Intact, Oriented x3, Reflexes Normal - Psychiatric Exam Psychiatric exam: Normal Mood - Skin Skin Exam: Dry Results - Vital Signs Recent Vital Signs: Last Vital Signs Temp 97.4 F L 06/05/17 15:00 Pulse 104 H 06/05/17 15:00 Resp 20 06/05/17 15:00 BP 135/92 H 06/05/17 15:00 Pulse Ox 98 06/05/17 15:00 - Labs Result Diagrams: 06/05/17 10:57 06/05/17 10:57 Labs: Laboratory Results - last 24 hr 06/04/17 06/04/17 06/04/17 19:12 19:12 19:12 WBC 8.6 RBC 4.48 Hgb 13.6 Hct 40.0 MCV 89.2 D MCH 30.4 MCHC 34.1 RDW 13.4 Plt Count 439 H D MPV 7.5 Neut % (Auto) 75.0 Lymph % (Auto) 16.0 L [place] % (Auto) 7.3 Eos % (Auto) 1.2 Baso % (Auto) 0.5 Neut # (Auto) 6.5 Lymph # (Auto) 1.4 Bay # (Auto) 0.6 Eos # (Auto) 0.1 Baso # (Auto) 0.0 ESR 65 H PT 14.9 H INR 1.3 APTT 34 Sodium Potassium Chloride Carbon Dioxide Anion Gap BUN Creatinine Est GFR ( Amer) Est GFR (Non-Af Amer) Random Glucose Calcium Total Bilirubin AST ALT Alkaline Phosphatase C-Reactive Protein Total Protein Albumin Globulin Albumin/Globulin Ratio Urine Color Colorless Urine Clarity Clear Urine pH 7.0 Ur Specific [place] 1.002 L Urine Protein Negative Urine Glucose (UA) Normal Urine Ketones Negative Urine Blood 1+ H Urine Nitrate Negative Urine Bilirubin Negative Urine Urobilinogen Normal Ur Leukocyte Esterase Neg 06/04/17 06/05/17 06/05/17 19:12 10:57 10:57 WBC 9.2 RBC 4.56 Hgb 14.0 Hct 41.1 MCV 90.2 MCH 30.6 MCHC 33.9 RDW 13.4 Plt Count 432 H MPV 7.4 Neut % (Auto) 79.0 H Lymph % (Auto) 12.3 L [place] % (Auto) 7.4 Eos % (Auto) 0.7 Baso % (Auto) 0.6 Neut # (Auto) 7.2 H Lymph # (Auto) 1.1 Bay # (Auto) 0.7 Eos # (Auto) 0.1 Baso # (Auto) 0.1 ESR PT INR APTT Sodium 137 138 Potassium 3.9 4.1 Chloride 93 L 97 L Carbon Dioxide 28 30 Anion Gap 20 15 BUN 9 6 L Creatinine 0.8 0.8 Est GFR ( Amer) > 60 > 60 Est GFR (Non-Af Amer) > 60 > 60 Random Glucose 131 H 98 Calcium 9.3 9.3 Total Bilirubin 0.6 0.8 AST 26 27 ALT 25 22 Alkaline Phosphatase 74 78 C-Reactive Protein 23.50 H Total Protein 7.8 7.9 Albumin 4.1 4.2 Globulin 3.7 3.7 Albumin/Globulin Ratio 1.1 1.1 Urine Color Urine Clarity Urine pH Ur Specific [place] Urine Protein Urine Glucose (UA) Urine Ketones Urine Blood Urine Nitrate Urine Bilirubin Urine Urobilinogen Ur Leukocyte Esterase Assessment & Plan (1) Osteomyelitis of lumbar vertebra Status: Acute (2) Low back strain Status: Acute - Assessment and Plan (Free Text) Assessment: r/o epidural abscess OM spine recc bone scan, consider IR drainage, consider echo/[facility], await cultures, TB quantiferon
--- NOTE | 2017-06-06 00:01 | CARD ---
APPROVED REPORT EKG Measurement Heart [id number] <Conclusion> Sinus tachycardia Biatrial enlargement Low voltage QRS Abnormal ECG
[2017-06-06] MEDS: Vancomycin 1 gm/NS 200 ml 1 GM/200 ML BAG IVPB SCH ×3 (04:00→19:07)
[2017-06-06] MEDS: Cefepime IV 1 gm in Dextrose 1 GM/50 ML BAG IVPB SCH ×3 (05:22→21:21)
[2017-06-06 07:34] LABS: BASO # 0.1 K/uL (0.0-0.2); BASO % 0.8 % (0.0-2.0); EOS # 0.1 K/uL (0.0-0.7); EOS % 1.6 % (0.0-4.0); HEMOGLOBIN 13.5 g/dL (12.0-18.0); LYMPH # 1.1 K/uL (1.0-4.3); LYMPH % 17.1 % (20.0-40.0); MEAN CELL VOLUME 89.5 fL (80.0-94.0); MEAN CORPUSCULAR HEMOGLOBIN 30.7 pg (27.0-31.0); MEAN CORPUSCULAR HGB CONC 34.3 g/dL (33.0-37.0); MEAN PLATELET VOLUME 7.2 fL (7.2-11.7); MONO # 0.6 K/uL (0.0-0.8); MONO % 9.6 % (0.0-10.0); NEUT # 4.7 K/uL (1.8-7.0); NEUT % 70.9 % (50.0-75.0); NRBC % 0.1 % (0.0-2.0); RBC 4.41 Mil/uL (4.40-5.90); RED CELL DISTRIBUTION WIDTH 13.1 % (11.5-14.5); WHITE BLOOD COUNT 6.7 K/uL (4.8-10.8)
--- NOTE | 2017-06-06 07:40 | CON ---
DATE: 06/05/2017. REASON FOR CONSULTATION: Possible diskitis, lumbar spine. HISTORY OF PRESENT ILLNESS: The patient is pleasant 51 year old gentleman, who states that he started having some aching in his back about 6 months ago or so, but it was nothing that interfered with any of his normal activities. However, about a week ago, he was lifting a package of bottled water and had the acute onset of pain in his back. He came to the emergency room, was given some medications, trying to quiet down. However, 3 days later he was back in the emergency room again. They did a CAT scan at that time and told me he had some stenosis. They referred him to Dr. Chidi Gallego in [facility]. Dr. Gallego changed the medication from Flexeril to Robaxin, which was more effective and ordered some physical therapy visits. However after about 4 therapy visits, Mr. Almendarez was still in severe pain. Therefore, Dr. Gallego's office ordered an MRI which was done yesterday and once Dr. Gallego received the report, advised Mr. Almendarez to go the emergency room here at [facility], which he did and was admitted. Mr. Almendarez denies having any fevers, chills or anything of that nature. No radicular complaints into the legs. He does report that the pain is back, seems to radiate down towards the groin level, lower abdominal and upper thigh kind of thing. No loss of bowel or bladder control at any time. PAST MEDICAL HISTORY: No significant past medical history. MEDICATIONS: Normally, he is not on any prescription medications. ALLERGIES: NO KNOWN MEDICAL ALLERGIES. PAST SURGICAL HISTORY: Significant for appendectomy in the past. REVIEW OF SYSTEMS: He denies smoking and no alcohol intake. No drug use. He when questioned about recent infection, he recalls having sinus abscess in 2016, but at that time, again had no systematic complaints. He does recall 6 or 7 weeks ago having a bout of colitis and that he had fatty stools and was given medication, which then constipated him, but that is the only recent illness he can recall. PHYSICAL EXAMINATION: MUSCULOSKELETAL: He seems to point more in the lower lumbar lumbosacral region as being the area of pain. No real pain to percussion in the upper lumbar region. He can move both lower extremity actively. Sensory exam is intact to light touch throughout. He has good strength in both lower extremities. May have some slight weakness of his right hip flexor compared to the left, but I would say the left if 5/5 and the right is may be 4 or 4+/5. Otherwise, again everything is completely intact. LABORATORY DATA: I reviewed the MRI that he had done at [facility] on 06/04/2017. It shows complete loss of normal architecture of the 2 and 3 disk space with fluid in disk space and increased signal in at least three quarters to the way up the L2 vertebral body and about two th[address] to the way down into the L3 vertebral body. There is a small epidural extension to the left. Mr. Almendarez's does report that when he first started to get the pain, it seemed to be more on the left side than the right, but again no laterality to his findings on neurologic exam. IMPRESSION: That of probable diskitis/osteomyelitis at L2-3. Again, outside of the colitis, there is no real good history for what would have led to this. Evidently, Interventional Radiology has been consulted and that would be the best first step to see if they could do a needle-guided aspiration of the space to try and get an idea of what pathology/microbiology going on here. Depending on those results obviously would indicate the best medical treatment. If we can probably treat the infection, presuming that is what it is, these tend to be self limiting over the course of 6 to 12 months, where the L2 body will fuse to the L3 body on it own. If he is symptomatic enough, we can order a lumbar brace such as Pacheco brace brace for him to wear when he is up out of bed. Normally, the MRIs tend to worsen in appearance over the first several months, so unless his neurological exam changes, there will be no reason to do serial MRIs before at least 3 to 6 months. We will follow the patient along after the aspirations done to check on the results and proceed accordingly. Thank you for allowing me to participate in the care of your patient. Salvatore Pablo MD MTDD
[2017-06-06 08:25] LABS: ALB/GLOB RATIO 1.1 (1.0-2.1); ALBUMIN 3.8 g/dL (3.5-5.0); ALT/SGPT 14 U/L (21-72); AST/SGOT 28 U/L (17-59); BLOOD UREA NITROGEN 6 mg/dL (9-20); CALCIUM 9.3 mg/dl (8.6-10.4); GFR AFRICAN-AMERICAN > 60; GFR NON-AFRICAN AMERICAN > 60
[2017-06-06] MEDS ORDERED: Pneumococcal 23-Valent Vaccine IM ONE (10:00)
--- NOTE | 2017-06-06 13:14 | CP.PCM.PN ---
Subjective - Date & Time of Evaluation Date of Evaluation: 06/06/17 Time of Evaluation: 08:00 - Subjective Subjective: PGY 2 medicine progress note for Dr. Jv Knutson: Patient was seen and examined at bedside this morning. Patient was complaining of minimal back pain. No shortness of breath or chest pain. He has no other complaints at this time. Objective - Vital Signs/Intake and Output Vital Signs (last 24 hours): Temp Pulse Resp BP Pulse Ox 98 F 103 H 20 133/91 H 98 06/06/17 07:46 06/06/17 07:46 06/06/17 07:46 06/06/17 07:46 06/06/17 07:46 Intake and Output: 06/06/17 06/06/17 06:59 18:59 Intake Total 290 Balance 290 - Medications Medications: Current Medications Cyclobenzaprine HCl (Flexeril) 10 mg PO TID PRN PRN Reason: Pain, severe (8-10) Last Admin: 06/05/17 09:15 Dose: 10 mg Docusate Sodium (Colace) 100 mg PO BID [facility] Last Admin: 06/06/17 09:34 Dose: 100 mg Famotidine (Pepcid) 20 mg PO DAILY [facility] Last Admin: 06/06/17 09:34 Dose: 20 mg Heparin Sodium (Porcine) (Heparin) 5,000 units SC Q12 [facility] Last Admin: 06/06/17 09:34 Dose: 5,000 units Vancomycin/Sodium Chloride (Vancomycin 1 Gm/Ns 200 Ml) 1 gm in 200 mls @ 133 mls/hr IVPB Q8H [facility] PRN Reason: Protocol Stop: 06/10/17 04:01 Last Admin: 06/06/17 12:43 Dose: 133 mls/hr Cefepime HCl (Maxipime Iv 1 Gm Premix) 1 gm in 50 mls @ 100 mls/hr IVPB Q8 [facility] PRN Reason: Protocol Last Admin: 06/06/17 05:22 Dose: 100 mls/hr Tramadol HCl (Ultram) 50 mg PO TID PRN PRN Reason: Pain, moderate (4-7) Last Admin: 06/05/17 21:29 Dose: 50 mg - Labs Labs: 06/06/17 07:26 06/06/17 07:26 PT 14.9 SECONDS (9.7-12.2) H 06/04/17 19:12 INR 1.3 06/04/17 19:12 APTT 34 SECONDS (21-34) 06/04/17 19:12 - Constitutional Appears: Non-toxic, No Acute Distress - Head Exam Head Exam: ATRAUMATIC, NORMAL INSPECTION - Eye Exam Eye Exam: EOMI Pupil Exam: NORMAL ACCOMODATION - ENT Exam ENT Exam: Mucous Membranes Moist - Respiratory Exam Respiratory Exam: Clear to Ausculation Bilateral, NORMAL BREATHING PATTERN. absent: Respiratory Distress - Cardiovascular Exam Cardiovascular Exam: REGULAR RHYTHM, +S1, +S2 - GI/Abdominal Exam GI & Abdominal Exam: Soft, Normal Bowel Sounds. absent: Distended, Firm, Guarding, Tenderness - Extremities Exam Extremities Exam: Normal Inspection - Back Exam Back Exam: paraspinal tenderness - Neurological Exam Neurological Exam: Alert, Awake, CN II-XII Intact, Normal Gait, Oriented x3 Neuro motor strength exam: Left Upper Extremity: 5, Right Upper Extremity: 5, Left Lower Extremity: 5, Right Lower Extremity: 5 - Psychiatric Exam Psychiatric exam: Normal Affect, Normal Mood - Skin Skin Exam: Dry, Intact, Normal Color, Warm Assessment and Plan - Assessment and Plan (Free Text) Assessment: Assessment: 51 year old male with no significant past medical history is admitted for osteomyelitis of L2-L3 and possible spinal abscess Osteomyelitis of L2-L3 with spinal abscess - MRI of lumbar spine done on 06/04/17: "Findings suspicious for discitis and osteomyelitis at L2-L3 with possible small ventral epidural abscess in the left anterolateral recess. There is mild bilateral foramen narrowing at this level. " MRI disc in patient's paper chart. - ESR and CRP both elevated on presentation - Neurosx, Dr. Stephenson is consulted. Awaiting recs - ID, Dr. He is consulted. Recommend getting echo/[facility] to locate source of infection - Cardiology consulted, Dr. Carranza - help appreciated, will follow up recs - Cefepime 1gram IVPB Q8 hours and Vancomycin 1gram IVPB Q8 hours (started 06/05) - Vanc trough 06/06 15.3 - Flexeril 10 mg po TID - Ultram 50mg PO TID prn pain - blood cultures negative x 24 hours - f/u echo report - HIV negative - f/u Quant, HBA1c, procalcitonin - f/u Ceretec wbc scan - Will need to consult IR for possible abscess drainage, cultures Prophylaxis - Pepcid 20 mg po qd - Heparin SC q12 - SCDs All orders and management per Dr. Knutson
--- NOTE | 2017-06-06 16:42 | CP.PCM.PN ---
Subjective - Date & Time of Evaluation Date of Evaluation: 06/06/17 Time of Evaluation: 08:00 - Subjective Subjective: clinically same Objective - Vital Signs/Intake and Output Vital Signs (last 24 hours): Temp Pulse Resp BP Pulse Ox 97.5 F L 98 H 20 131/92 H 97 06/06/17 15:00 06/06/17 15:00 06/06/17 15:00 06/06/17 15:00 06/06/17 15:00 Intake and Output: 06/06/17 06/06/17 06:59 18:59 Intake Total 290 750 Balance 290 750 - Medications Medications: Current Medications Cyclobenzaprine HCl (Flexeril) 10 mg PO TID PRN PRN Reason: Pain, severe (8-10) Last Admin: 06/05/17 09:15 Dose: 10 mg Docusate Sodium (Colace) 100 mg PO BID [facility] Last Admin: 06/06/17 09:34 Dose: 100 mg Famotidine (Pepcid) 20 mg PO DAILY [facility] Last Admin: 06/06/17 09:34 Dose: 20 mg Heparin Sodium (Porcine) (Heparin) 5,000 units SC Q12 [facility] Last Admin: 06/06/17 09:34 Dose: 5,000 units Vancomycin/Sodium Chloride (Vancomycin 1 Gm/Ns 200 Ml) 1 gm in 200 mls @ 133 mls/hr IVPB Q8H NETO PRN Reason: Protocol Stop: 06/10/17 04:01 Last Admin: 06/06/17 12:43 Dose: 133 mls/hr Cefepime HCl (Maxipime Iv 1 Gm Premix) 1 gm in 50 mls @ 100 mls/hr IVPB Q8 NETO PRN Reason: Protocol Last Admin: 06/06/17 14:33 Dose: 100 mls/hr Tramadol HCl (Ultram) 50 mg PO TID PRN PRN Reason: Pain, moderate (4-7) Last Admin: 06/05/17 21:29 Dose: 50 mg - Labs Labs: 06/06/17 07:26 06/06/17 07:26 PT 14.9 SECONDS (9.7-12.2) H 06/04/17 19:12 INR 1.3 06/04/17 19:12 APTT 34 SECONDS (21-34) 06/04/17 19:12 - Constitutional Appears: Well - Head Exam Head Exam: ATRAUMATIC, NORMAL INSPECTION, NORMOCEPHALIC - Eye Exam Eye Exam: EOMI, Normal appearance, PERRL Pupil Exam: NORMAL ACCOMODATION, PERRL - ENT Exam ENT Exam: Mucous Membranes Moist, Normal Exam - Neck Exam Neck Exam: Full ROM, Normal Inspection. absent: Lymphadenopathy - Respiratory Exam Respiratory Exam: Decreased Breath Sounds - Cardiovascular Exam Cardiovascular Exam: REGULAR RHYTHM, +S1, +S2 - GI/Abdominal Exam GI & Abdominal Exam: Soft, Diminished Bowel Sounds - Rectal Exam Rectal Exam: Deferred Assessment and Plan (1) Osteomyelitis of lumbar vertebra Status: Acute (2) Low back strain Status: Acute (3) Spinal stenosis of lumbar region Status: Acute
--- NOTE | 2017-06-06 16:50 | CP.PCM.CON ---
Past Patient History - Infectious Disease Hx of Infectious Diseases: None - Past Medical History & Family History Past Medical History?: No - Past Social History Smoking Status: Never Smoked - MUSCULOSKELETAL/RHEUMATOLOGICAL Hx Falls: No - PSYCHIATRIC Hx Substance Use: No - SURGICAL HISTORY Hx Surgeries: Yes Hx Appendectomy: Yes - ANESTHESIA Hx Anesthesia: Yes Hx Anesthesia Reactions: No Hx Malignant Hyperthermia: No Meds Allergies/Adverse Reactions: Allergies Allergy/AdvReac Type Severity Reaction Status Date / Time No Known Allergies Allergy Verified 06/04/17 18:12 - Medications Medications: Current Medications Cyclobenzaprine HCl (Flexeril) 10 mg PO TID PRN PRN Reason: Pain, severe (8-10) Last Admin: 06/05/17 09:15 Dose: 10 mg Docusate Sodium (Colace) 100 mg PO BID REPLACED BY [facility] Last Admin: 06/06/17 09:34 Dose: 100 mg Famotidine (Pepcid) 20 mg PO DAILY [facility]PL[facility] BY [facility] Last Admin: 06/06/17 09:34 Dose: 20 mg Heparin Sodium (Porcine) (Heparin) 5,000 units SC Q12 [facility]PL[facility] BY [facility] Last Admin: 06/06/17 09:34 Dose: 5,000 units Vancomycin/Sodium Chloride (Vancomycin 1 Gm/Ns 200 Ml) 1 gm in 200 mls @ 133 mls/hr IVPB Q8H NETO PRN Reason: Protocol Stop: 06/10/17 04:01 Last Admin: 06/06/17 12:43 Dose: 133 mls/hr Cefepime HCl (Maxipime Iv 1 Gm Premix) 1 gm in 50 mls @ 100 mls/hr IVPB Q8 NETO PRN Reason: Protocol Last Admin: 06/06/17 14:33 Dose: 100 mls/hr Tramadol HCl (Ultram) 50 mg PO TID PRN PRN Reason: Pain, moderate (4-7) Last Admin: 06/05/17 21:29 Dose: 50 mg Results - Vital Signs Recent Vital Signs: Last Vital Signs Temp 97.5 F L 06/06/17 15:00 Pulse 98 H 06/06/17 15:00 Resp 20 06/06/17 15:00 BP 131/92 H 06/06/17 15:00 Pulse Ox 97 06/06/17 15:00 - Labs Result Diagrams: 06/06/17 07:26 06/06/17 07:26 Labs: Laboratory Results - last 24 hr 06/05/17 06/06/17 06/06/17 16:49 02:44 07:26 WBC 6.7 RBC 4.41 Hgb 13.5 Hct 39.4 MCV 89.5 MCH 30.7 MCHC 34.3 RDW 13.1 Plt Count 358 MPV 7.2 Neut % (Auto) 70.9 Lymph % (Auto) 17.1 L [place] % (Auto) 9.6 Eos % (Auto) 1.6 Baso % (Auto) 0.8 Neut # (Auto) 4.7 Lymph # (Auto) 1.1 [place] # (Auto) 0.6 Eos # (Auto) 0.1 Baso # (Auto) 0.1 ESR 75 H Sodium Potassium Chloride Carbon Dioxide Anion Gap BUN Creatinine Est GFR ( Amer) Est GFR (Non-Af Amer) Random Glucose Calcium Total Bilirubin AST ALT Alkaline Phosphatase C-React Prot High Sens Total Protein Albumin Globulin Albumin/Globulin Ratio Procalcitonin Vancomycin Trough 15.3 H HIV 1&2 Antibody Screen Negative 06/06/17 06/06/17 06/06/17 07:26 07:26 07:26 WBC RBC Hgb Hct MCV MCH MCHC RDW Plt Count MPV Neut % (Auto) Lymph % (Auto) [place] % (Auto) Eos % (Auto) Baso % (Auto) Neut # (Auto) Lymph # (Auto) [place] # (Auto) Eos # (Auto) Baso # (Auto) ESR Sodium 142 Potassium 3.9 Chloride 99 Carbon Dioxide 29 Anion Gap 17 BUN 6 L Creatinine 0.8 Est GFR ( Amer) > 60 Est GFR (Non-Af Amer) > 60 Random Glucose 93 Calcium 9.3 Total Bilirubin 0.8 AST 28 ALT 14 L D Alkaline Phosphatase 71 C-React Prot High Sens > 15.00 H Total Protein 7.1 Albumin 3.8 Globulin 3.3 Albumin/Globulin Ratio 1.1 Procalcitonin < 0.05 L Vancomycin Trough HIV 1&2 Antibody Screen
--- NOTE | 2017-06-06 16:50 | CP.PCM.CON ---
History of Present Illness - History of Present Illness History of Present Illness: Patient seen/examined. chart echo reviewed. no evidence of valvular vegetation. cultures are negative thus far. clinically feels well. will defer MELQUIADES at this time. Past Patient History - Infectious Disease Hx of Infectious Diseases: None - Past Medical History & Family History Past Medical History?: No - Past Social History Smoking Status: Never Smoked - MUSCULOSKELETAL/RHEUMATOLOGICAL Hx Falls: No - PSYCHIATRIC Hx Substance Use: No - SURGICAL HISTORY Hx Surgeries: Yes Hx Appendectomy: Yes - ANESTHESIA Hx Anesthesia: Yes Hx Anesthesia Reactions: No Hx Malignant Hyperthermia: No Meds Allergies/Adverse Reactions: Allergies Allergy/AdvReac Type Severity Reaction Status Date / Time No Known Allergies Allergy Verified 06/04/17 18:12 - Medications Medications: Current Medications Cyclobenzaprine HCl (Flexeril) 10 mg PO TID PRN PRN Reason: Pain, severe (8-10) Last Admin: 06/05/17 09:15 Dose: 10 mg Docusate Sodium (Colace) 100 mg PO BID [facility] Last Admin: 06/06/17 09:34 Dose: 100 mg Famotidine (Pepcid) 20 mg PO DAILY [facility] Last Admin: 06/06/17 09:34 Dose: 20 mg Heparin Sodium (Porcine) (Heparin) 5,000 units SC Q12 NETO Last Admin: 06/06/17 09:34 Dose: 5,000 units Vancomycin/Sodium Chloride (Vancomycin 1 Gm/Ns 200 Ml) 1 gm in 200 mls @ 133 mls/hr IVPB Q8H NETO PRN Reason: Protocol Stop: 06/10/17 04:01 Last Admin: 06/06/17 12:43 Dose: 133 mls/hr Cefepime HCl (Maxipime Iv 1 Gm Premix) 1 gm in 50 mls @ 100 mls/hr IVPB Q8 NETO PRN Reason: Protocol Last Admin: 06/06/17 14:33 Dose: 100 mls/hr Tramadol HCl (Ultram) 50 mg PO TID PRN PRN Reason: Pain, moderate (4-7) Last Admin: 06/05/17 21:29 Dose: 50 mg Results - Vital Signs Recent Vital Signs: Last Vital Signs Temp 97.5 F L 06/06/17 15:00 Pulse 98 H 06/06/17 15:00 Resp 20 06/06/17 15:00 BP 131/92 H 06/06/17 15:00 Pulse Ox 97 06/06/17 15:00 - Labs Result Diagrams: 06/06/17 07:26 06/06/17 07:26 Labs: Laboratory Results - last 24 hr 06/05/17 06/06/17 06/06/17 16:49 02:44 07:26 WBC 6.7 RBC 4.41 Hgb 13.5 Hct 39.4 MCV 89.5 MCH 30.7 MCHC 34.3 RDW 13.1 Plt Count 358 MPV 7.2 Neut % (Auto) 70.9 Lymph % (Auto) 17.1 L [place] % (Auto) 9.6 Eos % (Auto) 1.6 Baso % (Auto) 0.8 Neut # (Auto) 4.7 Lymph # (Auto) 1.1 [place] # (Auto) 0.6 Eos # (Auto) 0.1 Baso # (Auto) 0.1 ESR 75 H Sodium Potassium Chloride Carbon Dioxide Anion Gap BUN Creatinine Est GFR ( Amer) Est GFR (Non-Af Amer) Random Glucose Calcium Total Bilirubin AST ALT Alkaline Phosphatase C-React Prot High Sens Total Protein Albumin Globulin Albumin/Globulin Ratio Procalcitonin Vancomycin Trough 15.3 H HIV 1&2 Antibody Screen Negative 06/06/17 06/06/17 06/06/17 07:26 07:26 07:26 WBC RBC Hgb Hct MCV MCH MCHC RDW Plt Count MPV Neut % (Auto) Lymph % (Auto) [place] % (Auto) Eos % (Auto) Baso % (Auto) Neut # (Auto) Lymph # (Auto) [place] # (Auto) Eos # (Auto) Baso # (Auto) ESR Sodium 142 Potassium 3.9 Chloride 99 Carbon Dioxide 29 Anion Gap 17 BUN 6 L Creatinine 0.8 Est GFR ( Amer) > 60 Est GFR (Non-Af Amer) > 60 Random Glucose 93 Calcium 9.3 Total Bilirubin 0.8 AST 28 ALT 14 L D Alkaline Phosphatase 71 C-React Prot High Sens > 15.00 H Total Protein 7.1 Albumin 3.8 Globulin 3.3 Albumin/Globulin Ratio 1.1 Procalcitonin < 0.05 L Vancomycin Trough HIV 1&2 Antibody Screen
--- NOTE | 2017-06-06 19:05 | CP.PCM.PN ---
Subjective - Date & Time of Evaluation Date of Evaluation: 06/06/17 Time of Evaluation: 10:00 - Subjective Subjective: seen by Dr Carranza discussed with family Rx in progress for CERETEC Vanco levels ok will monitor Objective - Vital Signs/Intake and Output Vital Signs (last 24 hours): Temp Pulse Resp BP Pulse Ox 97.5 F L 98 H 20 131/92 H 97 06/06/17 15:00 06/06/17 15:00 06/06/17 15:00 06/06/17 15:00 06/06/17 15:00 Intake and Output: 06/06/17 06/07/17 18:59 06:59 Intake Total 750 Balance 750 - Medications Medications: Current Medications Cyclobenzaprine HCl (Flexeril) 10 mg PO TID PRN PRN Reason: Pain, severe (8-10) Last Admin: 06/05/17 09:15 Dose: 10 mg Docusate Sodium (Colace) 100 mg PO BID [facility] Last Admin: 06/06/17 17:16 Dose: 100 mg Famotidine (Pepcid) 20 mg PO DAILY [facility] Last Admin: 06/06/17 09:34 Dose: 20 mg Heparin Sodium (Porcine) (Heparin) 5,000 units SC Q12 NETO Last Admin: 06/06/17 09:34 Dose: 5,000 units Vancomycin/Sodium Chloride (Vancomycin 1 Gm/Ns 200 Ml) 1 gm in 200 mls @ 133 mls/hr IVPB Q8H NETO PRN Reason: Protocol Stop: 06/10/17 04:01 Last Admin: 06/06/17 12:43 Dose: 133 mls/hr Cefepime HCl (Maxipime Iv 1 Gm Premix) 1 gm in 50 mls @ 100 mls/hr IVPB Q8 NETO PRN Reason: Protocol Last Admin: 06/06/17 14:33 Dose: 100 mls/hr Tramadol HCl (Ultram) 50 mg PO TID PRN PRN Reason: Pain, moderate (4-7) Last Admin: 06/05/17 21:29 Dose: 50 mg - Labs Labs: 06/06/17 07:26 06/06/17 07:26 PT 14.9 SECONDS (9.7-12.2) H 06/04/17 19:12 INR 1.3 06/04/17 19:12 APTT 34 SECONDS (21-34) 06/04/17 19:12 - Constitutional Appears: Non-toxic, Chronically Ill - Head Exam Head Exam: NORMOCEPHALIC - Eye Exam Eye Exam: PERRL - ENT Exam ENT Exam: Mucous Membranes Dry - Neck Exam Neck Exam: absent: Lymphadenopathy - Respiratory Exam Respiratory Exam: Decreased Breath Sounds - Cardiovascular Exam Cardiovascular Exam: REGULAR RHYTHM - GI/Abdominal Exam GI & Abdominal Exam: Distended - Rectal Exam Rectal Exam: Deferred - Exam Exam: NORMAL INSPECTION - Extremities Exam Extremities Exam: absent: Pedal Edema - Back Exam Back Exam: absent: CVA tenderness (L), CVA tenderness (R), paraspinal tenderness - Neurological Exam Neurological Exam: Alert, Awake, CN II-XII Intact, Oriented x3 - Psychiatric Exam Psychiatric exam: Normal Affect, Normal Mood - Skin Skin Exam: Dry Assessment and Plan (1) Osteomyelitis of lumbar vertebra Status: Acute (2) Low back strain Assessment & Plan: discitis possible abscess consider IR drainage IV rx ordered Status: Acute
[2017-06-07] MEDS: Vancomycin 1 gm/NS 200 ml 1 GM/200 ML BAG IVPB SCH ×3 (03:39→19:17)
[2017-06-07] MEDS: Cefepime IV 1 gm in Dextrose 1 GM/50 ML BAG IVPB SCH ×3 (06:00→21:06)
[2017-06-07 07:17] LABS: BASO # 0.1 K/uL (0.0-0.2); BASO % 0.8 % (0.0-2.0); EOS # 0.2 K/uL (0.0-0.7); EOS % 2.4 % (0.0-4.0); HEMOGLOBIN 13.4 g/dL (12.0-18.0); LYMPH # 1.5 K/uL (1.0-4.3); LYMPH % 22.4 % (20.0-40.0); MEAN CELL VOLUME 89.4 fL (80.0-94.0); MEAN CORPUSCULAR HGB CONC 34.7 g/dL (33.0-37.0); MEAN PLATELET VOLUME 7.4 fL (7.2-11.7); MONO # 0.8 K/uL (0.0-0.8); MONO % 11.9 % (0.0-10.0); NEUT # 4.2 K/uL (1.8-7.0); NEUT % 62.5 % (50.0-75.0); RBC 4.32 Mil/uL (4.40-5.90); RED CELL DISTRIBUTION WIDTH 13.2 % (11.5-14.5); WHITE BLOOD COUNT 6.8 K/uL (4.8-10.8)
[2017-06-07 07:42] LABS: ALB/GLOB RATIO 1.1 (1.0-2.1); ALBUMIN 3.5 g/dL (3.5-5.0); ALT/SGPT 13 U/L (21-72); AST/SGOT 25 U/L (17-59); BLOOD UREA NITROGEN 7 mg/dL (9-20); CALCIUM 9.1 mg/dl (8.6-10.4); GFR AFRICAN-AMERICAN > 60; GFR NON-AFRICAN AMERICAN > 60
--- NOTE | 2017-06-07 12:18 | CP.PCM.PN ---
Subjective - Date & Time of Evaluation Date of Evaluation: 06/07/17 Time of Evaluation: 12:14 - Subjective Subjective: PGY [address] Knutson Pt is seen and examined at bedside. No acute events overnight. Pt resting comfortably. Still c/o low back pain worse after he had a BM yesterday. Denies having any numbness, tingling, urinary or bowel incontinence, f/C, Cp, SOB, abd pain, N/V/D/C. Objective - Vital Signs/Intake and Output Vital Signs (last 24 hours): Temp Pulse Resp BP Pulse Ox 98.5 F 89 20 135/90 10 L 06/07/17 07:48 06/07/17 07:48 06/07/17 07:48 06/07/17 07:48 06/07/17 07:48 Intake and Output: 06/07/17 06/07/17 06:59 18:59 Intake Total 1220 Balance 1220 - Medications Medications: Current Medications Cyclobenzaprine HCl (Flexeril) 10 mg PO TID PRN PRN Reason: Pain, severe (8-10) Last Admin: 06/05/17 09:15 Dose: 10 mg Docusate Sodium (Colace) 100 mg PO BID [facility] Last Admin: 06/07/17 09:30 Dose: 100 mg Famotidine (Pepcid) 20 mg PO DAILY [facility] Last Admin: 06/07/17 09:30 Dose: 20 mg Heparin Sodium (Porcine) (Heparin) 5,000 units SC Q12 [facility] Last Admin: 06/07/17 09:30 Dose: 5,000 units Vancomycin/Sodium Chloride (Vancomycin 1 Gm/Ns 200 Ml) 1 gm in 200 mls @ 133 mls/hr IVPB Q8H NETO PRN Reason: Protocol Stop: 06/10/17 04:01 Last Admin: 06/07/17 11:31 Dose: 133 mls/hr Cefepime HCl (Maxipime Iv 1 Gm Premix) 1 gm in 50 mls @ 100 mls/hr IVPB Q8 NETO PRN Reason: Protocol Last Admin: 06/07/17 06:00 Dose: 100 mls/hr Tramadol HCl (Ultram) 50 mg PO TID PRN PRN Reason: Pain, moderate (4-7) Last Admin: 06/07/17 09:47 Dose: 50 mg - Labs Labs: 06/07/17 06:56 06/07/17 06:56 PT 14.9 SECONDS (9.7-12.2) H 06/04/17 19:12 INR 1.3 06/04/17 19:12 APTT 34 SECONDS (21-34) 06/04/17 19:12 - Constitutional Appears: Non-toxic, No Acute Distress - Head Exam Head Exam: ATRAUMATIC - ENT Exam ENT Exam: Mucous Membranes Moist - Respiratory Exam Respiratory Exam: Clear to Ausculation Bilateral. absent: Accessory Muscle Use , Rales, Rhonchi, Wheezes, Respiratory Distress - Cardiovascular Exam Cardiovascular Exam: REGULAR RHYTHM. absent: Gallop, Rubs, +S1, +S2, Murmur - GI/Abdominal Exam GI & Abdominal Exam: Soft, Normal Bowel Sounds. absent: Distended, Firm, Guarding, Rigid, Tenderness, Organomegaly - Extremities Exam Extremities Exam: absent: Pedal Edema, Tenderness - Back Exam Back Exam: absent: paraspinal tenderness - Neurological Exam Neurological Exam: Alert, Awake, CN II-XII Intact, Motor Sensory Deficit, Oriented x3 Neuro motor strength exam: Left Upper Extremity: 5, Right Upper Extremity: 5, Left Lower Extremity: 5, Right Lower Extremity: 5 - Psychiatric Exam Psychiatric exam: Normal Affect, Normal Mood - Skin Skin Exam: Dry, Intact, Normal Color, Warm Assessment and Plan - Assessment and Plan (Free Text) Assessment: 51 year old male with no significant past medical history is admitted for osteomyelitis of L2-L3 and possible spinal abscess Osteomyelitis of L2-L3 with spinal abscess - MRI of lumbar spine done on 06/04/17: "Findings suspicious for discitis and osteomyelitis at L2-L3 with possible small ventral epidural abscess in the left anterolateral recess. There is mild bilateral foramen narrowing at this level. " MRI disc in patient's paper chart. - ESR and CRP both elevated on presentation - Neurosx, Dr. Stephenson is consulted. - ID, Dr. He is consulted. - Cardiology consulted, Dr. Carranza. Per cardiology, no vegetation seen on echo. Therefore will defer getting MELQUIADES at this time - Cefepime 1gram IVPB Q8 hours and Vancomycin 1gram IVPB Q8 hours (started 06/05) - Vanc trough 06/06 15.3 - Flexeril 10 mg po TID - Ultram 50mg PO TID prn pain - blood cultures negative x 24 hours - f/u official echo report - HIV negative - Low procal - Normal HgbA1c - f/u Quant - f/u Ceretec wbc scan to be done today - Will need to consult IR for possible abscess drainage, cultures Prophylaxis - Pepcid 20 mg po qd - Heparin SC q12 - SCDs All orders and management per Dr. Knutson
--- NOTE | 2017-06-07 14:24 | CARD ---
APPROVED REPORT EXAM: Two-dimensional and M-mode echocardiogram with Doppler and color Doppler. Other Information Technically limited study due to body habitus. INDICATION Infection:Rule out subacute bacterial endocarditis 2D DIMENSIONS IVSd0.7 (0.7-1.1cm)LVDd4.6 (3.9-5.9cm) PWd0.8 (0.7-1.1cm)LVDs3.0 (2.5-4.0cm) FS (%) 34.8 %LVEF (%)64.0 (>50%) M-Mode DIMENSIONS RVDd2.90 (2.1-3.2cm)Left Atrium (MM)2.51 (2.5-4.0cm) IVSd0.94 (0.7-1.1cm)Aortic Root2.97 (2.2-3.7cm) LVDd4.25 (4.0-5.6cm)Aortic Cusp Exc.1.92 (1.5-2.0cm) PWd1.12 (0.7-1.1cm)FS (%) 40 % LVDs2.54 (2.0-3.8cm)LVEF (%)71 (>50%) Mitral Valve MV E Gleuwgtu66.3cm/sMV A Dzuulfxs48.2cm/sE/A ratio0.7 TDI E/Lateral E'0.0E/Medial E'0.0 Tricuspid Valve TR Peak [id number]/sTR Peak [id number] LEFT VENTRICLE The left ventricle is normal size. There is normal left ventricular wall thickness. Left ventricle systolic function is normal. The Ejection Fraction is >70%. There is normal LV segmental wall motion. Tissue Doppler imaging reveals abnormal left ventricular diastolic dysfunction. RIGHT VENTRICLE The right ventricle is normal size. There is normal right ventricular wall thickness. The right ventricular systolic function is normal. ATRIA The left atrium size is normal. The right atrium size is normal. The interatrial septum is intact with no evidence for an atrial septal defect. AORTIC VALVE The aortic valve is normal in structure. No aortic regurgitation is present. There is no aortic valvular stenosis. MITRAL VALVE The mitral valve is normal in structure. A borderline mitral valve prolapse is present. There is no mitral valve stenosis. There is no mitral valve regurgitation noted. TRICUSPID VALVE The tricuspid valve is normal in structure. There is trace to mild tricuspid regurgitation. Right ventricular systolic pressure is estimated at less than 30 mmHg. There is no pulmonary hypertension. PULMONIC VALVE The pulmonic valve is not well visualized. There is no pulmonic valvular regurgitation. GREAT VESSELS The aortic root is normal in size. PERICARDIAL EFFUSION There is no significant pericardial effusion. <Conclusion> Left ventricle systolic function is normal. The Ejection Fraction is >70%. Diastolic dysfunction. No aortic regurgitation is present. There is no mitral valve regurgitation noted. There is trace to mild tricuspid regurgitation. There is no pulmonary hypertension. There is no pulmonic valvular regurgitation.
--- NOTE | 2017-06-07 16:32 | CP.PCM.PN ---
Subjective - Date & Time of Evaluation Date of Evaluation: 06/07/17 Time of Evaluation: 10:00 - Subjective Subjective: still c/o pain await neuro consult IV antibiotics in progress tolerating well no fever or chills at any time seen by neurosurgery- may need IR drainage of abscess will send for tumor markers and stool OB Objective - Vital Signs/Intake and Output Vital Signs (last 24 hours): Temp Pulse Resp BP Pulse Ox 98.5 F 89 20 135/90 10 L 06/07/17 07:48 06/07/17 07:48 06/07/17 07:48 06/07/17 07:48 06/07/17 07:48 Intake and Output: 06/07/17 06/07/17 06:59 18:59 Intake Total 1220 750 Balance 1220 750 - Medications Medications: Current Medications Cyclobenzaprine HCl (Flexeril) 10 mg PO TID PRN PRN Reason: Pain, severe (8-10) Last Admin: 06/05/17 09:15 Dose: 10 mg Docusate Sodium (Colace) 100 mg PO BID [facility] Last Admin: 06/07/17 09:30 Dose: 100 mg Famotidine (Pepcid) 20 mg PO DAILY [facility] Last Admin: 06/07/17 09:30 Dose: 20 mg Heparin Sodium (Porcine) (Heparin) 5,000 units SC Q12 [facility] Last Admin: 06/07/17 09:30 Dose: 5,000 units Vancomycin/Sodium Chloride (Vancomycin 1 Gm/Ns 200 Ml) 1 gm in 200 mls @ 133 mls/hr IVPB Q8H NETO PRN Reason: Protocol Stop: 06/10/17 04:01 Last Admin: 06/07/17 11:31 Dose: 133 mls/hr Cefepime HCl (Maxipime Iv 1 Gm Premix) 1 gm in 50 mls @ 100 mls/hr IVPB Q8 NETO PRN Reason: Protocol Last Admin: 06/07/17 14:13 Dose: 100 mls/hr Tramadol HCl (Ultram) 50 mg PO TID PRN PRN Reason: Pain, moderate (4-7) Last Admin: 06/07/17 09:47 Dose: 50 mg - Labs Labs: 06/07/17 06:56 06/07/17 06:56 PT 14.9 SECONDS (9.7-12.2) H 06/04/17 19:12 INR 1.3 06/04/17 19:12 APTT 34 SECONDS (21-34) 06/04/17 19:12 - Constitutional Appears: Non-toxic, Chronically Ill - Head Exam Head Exam: NORMOCEPHALIC - Eye Exam Eye Exam: PERRL. absent: Scleral icterus - ENT Exam ENT Exam: Mucous Membranes Dry - Neck Exam Neck Exam: Normal Inspection - Respiratory Exam Respiratory Exam: Decreased Breath Sounds - Cardiovascular Exam Cardiovascular Exam: REGULAR RHYTHM - GI/Abdominal Exam GI & Abdominal Exam: Distended, Soft - Rectal Exam Rectal Exam: Deferred - Exam Exam: NORMAL INSPECTION - Extremities Exam Extremities Exam: absent: Pedal Edema - Back Exam Back Exam: absent: CVA tenderness (L), CVA tenderness (R) - Neurological Exam Neurological Exam: Alert, Awake, Oriented x3 Neuro motor strength exam: Left Upper Extremity: 4, Right Upper Extremity: 4, Left Lower Extremity: 4, Right Lower Extremity: 4 - Psychiatric Exam Psychiatric exam: Depressed - Skin Skin Exam: Dry Assessment and Plan (1) Osteomyelitis of lumbar vertebra Status: Acute (2) Low back strain Status: Acute - Assessment and Plan (Free Text) Assessment: cont iv rx will repeat vanco levels may need IR drainage if abscess confirmed will send tumor markers await TB quantiferon report
[2017-06-08 00:57] LABS: TB ANTIGEN MINUS NIL 0.01 IU/mL
[2017-06-08] MEDS: Vancomycin 1 gm/NS 200 ml 1 GM/200 ML BAG IVPB SCH ×3 (04:25→20:17)
[2017-06-08] MEDS: Cefepime IV 1 gm in Dextrose 1 GM/50 ML BAG IVPB SCH ×3 (06:06→21:36)
[2017-06-08 06:56] LABS: BASO % 0.7 % (0.0-2.0); EOS # 0.2 K/uL (0.0-0.7); EOS % 2.4 % (0.0-4.0); LYMPH # 1.2 K/uL (1.0-4.3); LYMPH % 19.6 % (20.0-40.0); MEAN CELL VOLUME 88.5 fL (80.0-94.0); MEAN CORPUSCULAR HEMOGLOBIN 30.3 pg (27.0-31.0); MEAN CORPUSCULAR HGB CONC 34.2 g/dL (33.0-37.0); MEAN PLATELET VOLUME 7.3 fL (7.2-11.7); MONO # 0.7 K/uL (0.0-0.8); MONO % 10.4 % (0.0-10.0); NEUT # 4.3 K/uL (1.8-7.0); NEUT % 66.9 % (50.0-75.0); NRBC % 0.1 % (0.0-2.0); RBC 4.31 Mil/uL (4.40-5.90); RED CELL DISTRIBUTION WIDTH 12.9 % (11.5-14.5); WHITE BLOOD COUNT 6.4 K/uL (4.8-10.8)
[2017-06-08 08:03] LABS: ALB/GLOB RATIO 1.1 (1.0-2.1); ALBUMIN 3.6 g/dL (3.5-5.0); ALT/SGPT 18 U/L (21-72); AST/SGOT 28 U/L (17-59); BLOOD UREA NITROGEN 6 mg/dL (9-20); CALCIUM 9.1 mg/dl (8.6-10.4); GFR AFRICAN-AMERICAN > 60; GFR NON-AFRICAN AMERICAN > 60
--- NOTE | 2017-06-08 10:27 | NM ---
PROCEDURE: Ceretec labeled white blood cell study HISTORY: r/o discitis L2-3, r/o epidural abscess, r/o OM COMPARISON: None. TECHNIQUE: 20.5 mGy. Technetium 99 M Ceretec labeled white blood cell administered intravenously per institutional protocol with imaging 2 hours and 20 hours. FINDINGS: Photon deficient area at the L2-3 disc level. The findings are consistent with clinically suspected discitis. No other abnormalities are identified. Expected uptake in the liver spleen and alimentary tract. IMPRESSION: Positive Ceretec labeled white blood cell study for acne inflammatory/infectious process L2-3 level (discitis).
--- NOTE | 2017-06-08 18:06 | CP.PCM.PN ---
Subjective - Date & Time of Evaluation Date of Evaluation: 06/08/17 Time of Evaluation: 09:40 - Subjective Subjective: clinically same Objective - Vital Signs/Intake and Output Vital Signs (last 24 hours): Temp Pulse Resp BP Pulse Ox 98.1 F 100 H 20 143/97 H 100 06/08/17 08:00 06/08/17 08:00 06/08/17 08:00 06/08/17 08:00 06/08/17 08:00 Intake and Output: 06/08/17 06/08/17 06:59 18:59 Intake Total 730 1300 Balance 730 1300 - Medications Medications: Current Medications Cyclobenzaprine HCl (Flexeril) 10 mg PO TID PRN PRN Reason: Pain, severe (8-10) Last Admin: 06/05/17 09:15 Dose: 10 mg Docusate Sodium (Colace) 100 mg PO BID [facility] Last Admin: 06/08/17 10:50 Dose: 100 mg Famotidine (Pepcid) 20 mg PO DAILY [facility] Last Admin: 06/08/17 10:50 Dose: 20 mg Vancomycin/Sodium Chloride (Vancomycin 1 Gm/Ns 200 Ml) 1 gm in 200 mls @ 133 mls/hr IVPB Q8H NETO PRN Reason: Protocol Stop: 06/10/17 04:01 Last Admin: 06/08/17 11:35 Dose: 133 mls/hr Cefepime HCl (Maxipime Iv 1 Gm Premix) 1 gm in 50 mls @ 100 mls/hr IVPB Q8 NETO PRN Reason: Protocol Last Admin: 06/08/17 14:18 Dose: 100 mls/hr Tramadol HCl (Ultram) 50 mg PO TID PRN PRN Reason: Pain, moderate (4-7) Last Admin: 06/08/17 15:57 Dose: 50 mg - Labs Labs: 06/08/17 06:45 06/08/17 06:45 PT 14.9 SECONDS (9.7-12.2) H 06/04/17 19:12 INR 1.3 06/04/17 19:12 APTT 34 SECONDS (21-34) 06/04/17 19:12 - Constitutional Appears: Well - Head Exam Head Exam: ATRAUMATIC, NORMAL INSPECTION, NORMOCEPHALIC - Eye Exam Eye Exam: EOMI, Normal appearance, PERRL Pupil Exam: NORMAL ACCOMODATION, PERRL - ENT Exam ENT Exam: Mucous Membranes Moist, Normal Exam - Neck Exam Neck Exam: Full ROM, Normal Inspection. absent: Lymphadenopathy - Respiratory Exam Respiratory Exam: Decreased Breath Sounds - Cardiovascular Exam Cardiovascular Exam: REGULAR RHYTHM, +S1, +S2 - GI/Abdominal Exam GI & Abdominal Exam: Soft, Diminished Bowel Sounds - Rectal Exam Rectal Exam: Deferred Assessment and Plan (1) Osteomyelitis of lumbar vertebra Status: Acute (2) Low back strain Status: Acute (3) Spinal stenosis of lumbar region Status: Acute
[2017-06-09] MEDS: Vancomycin 1 gm/NS 200 ml 1 GM/200 ML BAG IVPB SCH ×3 (03:51→19:53)
[2017-06-09] MEDS: Cefepime IV 1 gm in Dextrose 1 GM/50 ML BAG IVPB SCH ×3 (05:49→21:44)
--- NOTE | 2017-06-09 15:11 | CP.PCM.PN ---
Subjective - Date & Time of Evaluation Date of Evaluation: 06/09/17 Time of Evaluation: 07:20 - Subjective Subjective: clinically same Objective - Vital Signs/Intake and Output Vital Signs (last 24 hours): Temp Pulse Resp BP Pulse Ox 97.7 F 86 19 135/90 98 06/09/17 08:00 06/09/17 08:00 06/09/17 08:00 06/09/17 08:00 06/09/17 08:00 Intake and Output: 06/09/17 06/09/17 06:59 18:59 Intake Total 1330 750 Balance 1330 750 - Medications Medications: Current Medications Cyclobenzaprine HCl (Flexeril) 10 mg PO TID PRN PRN Reason: Pain, severe (8-10) Last Admin: 06/05/17 09:15 Dose: 10 mg Docusate Sodium (Colace) 100 mg PO BID [facility] Last Admin: 06/09/17 09:35 Dose: 100 mg Famotidine (Pepcid) 20 mg PO DAILY [facility] Last Admin: 06/09/17 09:35 Dose: 20 mg Vancomycin/Sodium Chloride (Vancomycin 1 Gm/Ns 200 Ml) 1 gm in 200 mls @ 133 mls/hr IVPB Q8H NETO PRN Reason: Protocol Stop: 06/10/17 04:01 Last Admin: 06/09/17 12:42 Dose: 133 mls/hr Cefepime HCl (Maxipime Iv 1 Gm Premix) 1 gm in 50 mls @ 100 mls/hr IVPB Q8 NETO PRN Reason: Protocol Last Admin: 06/09/17 14:47 Dose: 100 mls/hr Tramadol HCl (Ultram) 50 mg PO TID PRN PRN Reason: Pain, moderate (4-7) Last Admin: 06/09/17 05:49 Dose: 50 mg - Labs Labs: 06/08/17 06:45 06/08/17 06:45 PT 14.9 SECONDS (9.7-12.2) H 06/04/17 19:12 INR 1.3 06/04/17 19:12 APTT 34 SECONDS (21-34) 06/04/17 19:12 - Constitutional Appears: Well - Head Exam Head Exam: ATRAUMATIC, NORMAL INSPECTION, NORMOCEPHALIC - Eye Exam Eye Exam: EOMI, Normal appearance, PERRL Pupil Exam: NORMAL ACCOMODATION, PERRL - ENT Exam ENT Exam: Mucous Membranes Moist, Normal Exam - Neck Exam Neck Exam: Full ROM, Normal Inspection. absent: Lymphadenopathy - Respiratory Exam Respiratory Exam: Decreased Breath Sounds - Cardiovascular Exam Cardiovascular Exam: REGULAR RHYTHM, +S1, +S2 - GI/Abdominal Exam GI & Abdominal Exam: Soft, Diminished Bowel Sounds - Rectal Exam Rectal Exam: Deferred Assessment and Plan (1) Osteomyelitis of lumbar vertebra Status: Acute (2) Low back strain Status: Acute (3) Spinal stenosis of lumbar region Status: Acute
--- NOTE | 2017-06-09 15:19 | CP.PCM.PN ---
Subjective - Date & Time of Evaluation Date of Evaluation: 06/09/17 Time of Evaluation: 10:00 - Subjective Subjective: c/o back pain TB Quantiferon negative cultures neg + Ceretec scan consider drainage / biopsy if possible will edward need 6 -8 weeks empiric rx for discitis Objective - Vital Signs/Intake and Output Vital Signs (last 24 hours): Temp Pulse Resp BP Pulse Ox 97.7 F 86 19 135/90 98 06/09/17 08:00 06/09/17 08:00 06/09/17 08:00 06/09/17 08:00 06/09/17 08:00 Intake and Output: 06/09/17 06/09/17 06:59 18:59 Intake Total 1330 750 Balance 1330 750 - Medications Medications: Current Medications Cyclobenzaprine HCl (Flexeril) 10 mg PO TID PRN PRN Reason: Pain, severe (8-10) Last Admin: 06/05/17 09:15 Dose: 10 mg Docusate Sodium (Colace) 100 mg PO BID [facility] Last Admin: 06/09/17 09:35 Dose: 100 mg Famotidine (Pepcid) 20 mg PO DAILY [facility] Last Admin: 06/09/17 09:35 Dose: 20 mg Vancomycin/Sodium Chloride (Vancomycin 1 Gm/Ns 200 Ml) 1 gm in 200 mls @ 133 mls/hr IVPB Q8H NETO PRN Reason: Protocol Stop: 06/10/17 04:01 Last Admin: 06/09/17 12:42 Dose: 133 mls/hr Cefepime HCl (Maxipime Iv 1 Gm Premix) 1 gm in 50 mls @ 100 mls/hr IVPB Q8 NETO PRN Reason: Protocol Last Admin: 06/09/17 14:47 Dose: 100 mls/hr Tramadol HCl (Ultram) 50 mg PO TID PRN PRN Reason: Pain, moderate (4-7) Last Admin: 06/09/17 05:49 Dose: 50 mg - Labs Labs: 06/08/17 06:45 06/08/17 06:45 PT 14.9 SECONDS (9.7-12.2) H 06/04/17 19:12 INR 1.3 06/04/17 19:12 APTT 34 SECONDS (21-34) 06/04/17 19:12 - Constitutional Appears: Non-toxic, Chronically Ill - Head Exam Head Exam: NORMOCEPHALIC - Eye Exam Eye Exam: PERRL - ENT Exam ENT Exam: Mucous Membranes Dry - Neck Exam Neck Exam: absent: Lymphadenopathy - Respiratory Exam Respiratory Exam: Decreased Breath Sounds - Cardiovascular Exam Cardiovascular Exam: REGULAR RHYTHM - GI/Abdominal Exam GI & Abdominal Exam: Distended, Soft - Rectal Exam Rectal Exam: Deferred - Exam Exam: NORMAL INSPECTION Assessment and Plan (1) Osteomyelitis of lumbar vertebra Status: Acute (2) Low back strain Status: Acute - Assessment and Plan (Free Text) Assessment: TB Quantiferon negative cultures neg + Ceretec scan consider drainage / biopsy if possible will edward need 6 -8 weeks empiric rx
[2017-06-09 20:09] VITALS: RESP 20
[2017-06-10] MEDS: Vancomycin 1 gm/NS 200 ml 1 GM/200 ML BAG IVPB SCH (03:50)
[2017-06-10] MEDS: Cefepime IV 1 gm in Dextrose 1 GM/50 ML BAG IVPB SCH (05:31)
--- NOTE | 2017-06-10 07:36 | CP.PCM.CON ---
History of Present Illness - History of Present Illness History of Present Illness: CONSULT DICTATED LUMBALR DISCITIS WITH ABSCESS EXAM LUMBAR RADICULOPATHY AGREE WITH ABSCESS DRAINAGE AB [place] ID Past Patient History - Infectious Disease Hx of Infectious Diseases: None - Past Medical History & Family History Past Medical History?: No - Past Social History Smoking Status: Never Smoked - MUSCULOSKELETAL/RHEUMATOLOGICAL Hx Falls: No - PSYCHIATRIC Hx Substance Use: No - SURGICAL HISTORY Hx Surgeries: Yes Hx Appendectomy: Yes - ANESTHESIA Hx Anesthesia: Yes Hx Anesthesia Reactions: No Hx Malignant Hyperthermia: No Meds Allergies/Adverse Reactions: Allergies Allergy/AdvReac Type Severity Reaction Status Date / Time No Known Allergies Allergy Verified 06/04/17 18:12 - Medications Medications: Current Medications Cyclobenzaprine HCl (Flexeril) 10 mg PO TID PRN PRN Reason: Pain, severe (8-10) Last Admin: 06/05/17 09:15 Dose: 10 mg Docusate Sodium (Colace) 100 mg PO BID [facility] Last Admin: 06/09/17 17:21 Dose: 100 mg Famotidine (Pepcid) 20 mg PO DAILY [facility] Last Admin: 06/09/17 09:35 Dose: 20 mg Cefepime HCl (Maxipime Iv 1 Gm Premix) 1 gm in 50 mls @ 100 mls/hr IVPB Q8 NETO PRN Reason: Protocol Last Admin: 06/10/17 05:31 Dose: 100 mls/hr Tramadol HCl (Ultram) 50 mg PO Q4H PRN PRN Reason: Pain, moderate (4-7) Last Admin: 06/10/17 06:41 Dose: 50 mg Results - Vital Signs Recent Vital Signs: Last Vital Signs Temp 97.5 F L 06/10/17 00:00 Pulse 92 H 06/10/17 00:00 Resp 20 06/10/17 00:00 BP 113/70 06/10/17 00:00 Pulse Ox 98 06/10/17 00:00 - Labs Result Diagrams: 06/08/17 06:45 06/08/17 06:45 Labs: Laboratory Results - last 24 hr 06/09/17 18:09 Stool Occult Blood Negative
--- NOTE | 2017-06-10 09:40 | PCM.IRP ---
History of Present Illness - History of Present Illness History of Present Illness: IR requested to evalute Mr. Almendarez for spinal abscess drainage. CT of L spine 05/15/2017 reviewed. MR report 06/05/2017 reviewed ( no imaging available). Based on the report, the small ventral L2-3 fluid collection is not amenable to percutaneous drainage. Objective - Vital Signs/Intake and Output Vital Signs (last 24 hours): Vital Signs - 24 hr 06/09/17 06/10/17 06/10/17 15:05 00:00 07:58 Temperature 97 F L 97.5 F L 97.3 F L Pulse Rate 87 92 H 104 H Respiratory 20 20 20 Rate Blood Pressure 134/90 113/70 126/86 O2 Sat by Pulse 97 98 10 L Oximetry Intake and Output (last 12 hours): Intake & Output 06/09/17 06/10/17 06/10/17 18:59 06:59 18:59 Intake Total 750 650 250 Balance 750 650 250 Intake: Intake, IV Amount 250 250 250 Left Antecubital 250 250 250 Oral 500 400 0 Other: # Voids Urine, Voided 3 4 2 # Bowel Movements 1 1 - Medications Medications: Current Medications Cyclobenzaprine HCl (Flexeril) 10 mg PO TID PRN PRN Reason: Pain, severe (8-10) Last Admin: 06/05/17 09:15 Dose: 10 mg Docusate Sodium (Colace) 100 mg PO BID [facility] Last Admin: 06/09/17 17:21 Dose: 100 mg Famotidine (Pepcid) 20 mg PO DAILY [facility] Last Admin: 06/09/17 09:35 Dose: 20 mg Cefepime HCl (Maxipime Iv 1 Gm Premix) 1 gm in 50 mls @ 100 mls/hr IVPB Q8 NETO PRN Reason: Protocol Last Admin: 06/10/17 05:31 Dose: 100 mls/hr Tramadol HCl (Ultram) 50 mg PO Q4H PRN PRN Reason: Pain, moderate (4-7) Last Admin: 06/10/17 06:41 Dose: 50 mg - Labs Labs (last 24 hours): Laboratory Results - last 24 hr 06/09/17 18:09 Stool Occult Blood Negative
--- NOTE | 2017-06-10 10:39 | CP.PCM.PN ---
Subjective - Date & Time of Evaluation Date of Evaluation: 06/10/17 Time of Evaluation: 08:00 - Subjective Subjective: seen by IR abscess not amenable to drainage will need 6-8 weeks iv rx via picc switch to televancin prior to discharge Objective - Vital Signs/Intake and Output Vital Signs (last 24 hours): Temp Pulse Resp BP Pulse Ox 97.3 F L 104 H 20 126/86 10 L 06/10/17 07:58 06/10/17 07:58 06/10/17 07:58 06/10/17 07:58 06/10/17 07:58 Intake and Output: 06/10/17 06/10/17 06:59 18:59 Intake Total 650 250 Balance 650 250 - Medications Medications: Current Medications Cyclobenzaprine HCl (Flexeril) 10 mg PO TID PRN PRN Reason: Pain, severe (8-10) Last Admin: 06/05/17 09:15 Dose: 10 mg Docusate Sodium (Colace) 100 mg PO BID [facility] Last Admin: 06/09/17 17:21 Dose: 100 mg Famotidine (Pepcid) 20 mg PO DAILY [facility] Last Admin: 06/09/17 09:35 Dose: 20 mg Cefepime HCl (Maxipime Iv 1 Gm Premix) 1 gm in 50 mls @ 100 mls/hr IVPB Q8 NETO PRN Reason: Protocol Last Admin: 06/10/17 05:31 Dose: 100 mls/hr Tramadol HCl (Ultram) 50 mg PO Q4H PRN PRN Reason: Pain, moderate (4-7) Last Admin: 06/10/17 06:41 Dose: 50 mg - Labs Labs: 06/08/17 06:45 06/08/17 06:45 PT 14.9 SECONDS (9.7-12.2) H 06/04/17 19:12 INR 1.3 06/04/17 19:12 APTT 34 SECONDS (21-34) 06/04/17 19:12 - Constitutional Appears: Non-toxic, Chronically Ill - Head Exam Head Exam: NORMOCEPHALIC - Eye Exam Eye Exam: PERRL - ENT Exam ENT Exam: Mucous Membranes Dry - Neck Exam Neck Exam: absent: Lymphadenopathy - Respiratory Exam Respiratory Exam: Decreased Breath Sounds - Cardiovascular Exam Cardiovascular Exam: REGULAR RHYTHM - GI/Abdominal Exam GI & Abdominal Exam: Distended - Rectal Exam Rectal Exam: Deferred Assessment and Plan (1) Osteomyelitis of lumbar vertebra Status: Acute (2) Low back strain Status: Acute
[2017-06-10 12:32] LABS: INR 1.4; PROTHROMBIN TIME 15.6 SECONDS (9.7-12.2)
[2017-06-10 12:36] LABS: BASO # 0.1 K/uL (0.0-0.2); BASO % 0.9 % (0.0-2.0); EOS # 0.1 K/uL (0.0-0.7); EOS % 1.6 % (0.0-4.0); HEMOGLOBIN 13.9 g/dL (12.0-18.0); LYMPH # 1.1 K/uL (1.0-4.3); LYMPH % 13.4 % (20.0-40.0); MEAN CELL VOLUME 89.1 fL (80.0-94.0); MEAN CORPUSCULAR HEMOGLOBIN 30.6 pg (27.0-31.0); MEAN CORPUSCULAR HGB CONC 34.3 g/dL (33.0-37.0); MEAN PLATELET VOLUME 7.8 fL (7.2-11.7); MONO # 0.9 K/uL (0.0-0.8); MONO % 10.3 % (0.0-10.0); NEUT # 6.2 K/uL (1.8-7.0); NEUT % 73.8 % (50.0-75.0); NRBC % 0.2 % (0.0-2.0); RBC 4.54 Mil/uL (4.40-5.90); RED CELL DISTRIBUTION WIDTH 13.1 % (11.5-14.5); WHITE BLOOD COUNT 8.4 K/uL (4.8-10.8)
[2017-06-10 12:45] LABS: ALB/GLOB RATIO 1.1 (1.0-2.1); ALBUMIN 4.3 g/dL (3.5-5.0); ALT/SGPT 32 U/L (21-72); AST/SGOT 54 U/L (17-59); BLOOD UREA NITROGEN 8 mg/dL (9-20); CALCIUM 9.8 mg/dl (8.6-10.4); GFR AFRICAN-AMERICAN > 60; GFR NON-AFRICAN AMERICAN > 60
--- NOTE | 2017-06-10 13:37 | RAD ---
HISTORY: Verify right PICC COMPARISON: Comparison made with prior chest radiograph 424 FINDINGS: Interval placement right-sided PICC line with tip in the SVC/brachiocephalic junction LUNGS: No active pulmonary disease. PLEURA: No significant pleural effusion identified, no pneumothorax apparent. CARDIOVASCULAR: Normal. OSSEOUS STRUCTURES: Minor multilevel degenerative spondylosis of thoracic spine VISUALIZED UPPER ABDOMEN: Normal. OTHER FINDINGS: None. IMPRESSION: Interval placement right-sided PICC line as described. Suspect left basilar atelectasis and or scarring.
[2017-06-10] MEDS ORDERED: Vancomycin 1 gm/NS 200 ml 1 GM/200 ML BAG IVPB SCH (16:00)
--- NOTE | 2017-06-10 16:10 | CP.PCM.PN ---
Subjective - Date & Time of Evaluation Date of Evaluation: 06/10/17 Time of Evaluation: 07:20 - Subjective Subjective: clinically same Objective - Vital Signs/Intake and Output Vital Signs (last 24 hours): Temp Pulse Resp BP Pulse Ox 97.3 F L 85 20 126/86 99 06/10/17 07:58 06/10/17 08:30 06/10/17 07:58 06/10/17 07:58 06/10/17 08:30 Intake and Output: 06/10/17 06/10/17 06:59 18:59 Intake Total 650 250 Balance 650 250 - Medications Medications: Current Medications Cyclobenzaprine HCl (Flexeril) 10 mg PO TID PRN PRN Reason: Pain, severe (8-10) Last Admin: 06/05/17 09:15 Dose: 10 mg Docusate Sodium (Colace) 100 mg PO BID [facility] Last Admin: 06/10/17 10:51 Dose: Not Given Famotidine (Pepcid) 20 mg PO DAILY [facility] Last Admin: 06/10/17 10:52 Dose: Not Given Vancomycin/Sodium Chloride (Vancomycin 1 Gm/Ns 200 Ml) 1 gm in 200 mls @ 166.7 mls/hr IVPB Q24H NETO PRN Reason: Protocol Stop: 06/15/17 16:01 Tramadol HCl (Ultram) 50 mg PO Q4H PRN PRN Reason: Pain, moderate (4-7) Last Admin: 06/10/17 06:41 Dose: 50 mg - Labs Labs: 06/10/17 11:49 06/10/17 11:49 PT 15.6 SECONDS (9.7-12.2) H 06/10/17 11:49 INR 1.4 06/10/17 11:49 APTT 36 SECONDS (21-34) H 06/10/17 11:49 - Constitutional Appears: Well - Head Exam Head Exam: ATRAUMATIC, NORMAL INSPECTION, NORMOCEPHALIC - Eye Exam Eye Exam: EOMI, Normal appearance, PERRL Pupil Exam: NORMAL ACCOMODATION, PERRL - ENT Exam ENT Exam: Mucous Membranes Moist, Normal Exam - Neck Exam Neck Exam: Full ROM, Normal Inspection. absent: Lymphadenopathy - Respiratory Exam Respiratory Exam: Decreased Breath Sounds - Cardiovascular Exam Cardiovascular Exam: REGULAR RHYTHM, +S1, +S2 - GI/Abdominal Exam GI & Abdominal Exam: Soft, Diminished Bowel Sounds - Rectal Exam Rectal Exam: Deferred Assessment and Plan (1) Osteomyelitis of lumbar vertebra Status: Acute (2) Low back strain Status: Acute (3) Spinal stenosis of lumbar region Status: Acute
--- NOTE | 2017-06-10 16:53 | RAD ---
HISTORY: verify right PICC COMPARISON: 06/10/2017 at 1:03 p.m. FINDINGS: LUNGS: No active pulmonary disease. PLEURA: No significant pleural effusion identified, no pneumothorax apparent. CARDIOVASCULAR: Normal heart size. Right PICC catheter now terminates in the region of the superior vena cava. OSSEOUS STRUCTURES: No significant abnormalities. VISUALIZED UPPER ABDOMEN: Normal. OTHER FINDINGS: None. IMPRESSION: Right PICC catheter terminates in the region of the SVC.
--- NOTE | 2017-06-10 17:51 | CP.PCM.PN ---
Subjective - Date & Time of Evaluation Date of Evaluation: 06/10/17 Time of Evaluation: 17:48 - Subjective Subjective: PGY2 progress note for Dr. Knutson Pt seen and examined at bedside. No acute events overnight. Pt is sitting comfortably in a chair. Continues to c/o low back pain. Denies having any CP, SOB, abd pain, N/v/d/C, F/C, LE numbness/tingling, saddle anesthesia, bowel or bladder incontinence. Objective - Vital Signs/Intake and Output Vital Signs (last 24 hours): Temp Pulse Resp BP Pulse Ox 97.3 F L 85 20 126/86 99 06/10/17 07:58 06/10/17 08:30 06/10/17 07:58 06/10/17 07:58 06/10/17 08:30 Intake and Output: 06/10/17 06/10/17 06:59 18:59 Intake Total 650 650 Balance 650 650 - Medications Medications: Current Medications Cyclobenzaprine HCl (Flexeril) 10 mg PO TID PRN PRN Reason: Pain, severe (8-10) Last Admin: 06/05/17 09:15 Dose: 10 mg Docusate Sodium (Colace) 100 mg PO BID [facility] Last Admin: 06/10/17 17:29 Dose: 100 mg Famotidine (Pepcid) 20 mg PO DAILY [facility] Last Admin: 06/10/17 10:52 Dose: Not Given Vancomycin/Sodium Chloride (Vancomycin 1 Gm/Ns 200 Ml) 1 gm in 200 mls @ 166.7 mls/hr IVPB Q24H NETO PRN Reason: Protocol Stop: 06/15/17 16:01 Last Admin: 06/10/17 16:58 Dose: 166.7 mls/hr Cefepime HCl 1 gm/ Dextrose 50 mls @ 100 mls/hr IVPB Q8H NETO PRN Reason: Protocol Tramadol HCl (Ultram) 50 mg PO Q4H PRN PRN Reason: Pain, moderate (4-7) Last Admin: 06/10/17 06:41 Dose: 50 mg - Labs Labs: 06/10/17 11:49 06/10/17 11:49 PT 15.6 SECONDS (9.7-12.2) H 06/10/17 11:49 INR 1.4 06/10/17 11:49 APTT 36 SECONDS (21-34) H 06/10/17 11:49 - Constitutional Appears: Non-toxic, No Acute Distress - Head Exam Head Exam: ATRAUMATIC - ENT Exam ENT Exam: Mucous Membranes Moist - Respiratory Exam Respiratory Exam: Clear to Ausculation Bilateral, NORMAL BREATHING PATTERN. absent: Accessory Muscle Use, Rales, Rhonchi, Wheezes, Respiratory Distress - Cardiovascular Exam Cardiovascular Exam: REGULAR RHYTHM, +S1, +S2. absent: Gallop, Rubs, Murmur - GI/Abdominal Exam GI & Abdominal Exam: Soft, Normal Bowel Sounds. absent: Distended, Firm, Guarding, Rigid, Tenderness, Organomegaly - Extremities Exam Extremities Exam: absent: Pedal Edema, Tenderness - Neurological Exam Neurological Exam: Alert, Awake, Oriented x3 - Psychiatric Exam Psychiatric exam: Normal Affect, Normal Mood - Skin Skin Exam: Dry, Intact, Normal Color, Warm Assessment and Plan - Assessment and Plan (Free Text) Assessment: 51 year old male with no significant past medical history is admitted for osteomyelitis of L2-L3 and possible spinal abscess Osteomyelitis of L2-L3 with spinal abscess - MRI of lumbar spine done on 06/04/17: "Findings suspicious for discitis and osteomyelitis at L2-L3 with possible small ventral epidural abscess in the left anterolateral recess. There is mild bilateral foramen narrowing at this level. " MRI disc in patient's paper chart. - Neurosx, Dr. Stephenson is consulted. - ID, Dr. He is consulted. Recommend 6 weeks of antibiotics: televancin 750 mg IV qd, Rocephin 2 gm IV QD. - IR, Dr. Dozier was consulted for drainage of spinal abscess. After reviewing the MRI imaging, Dr. Dozier deemed the small ventral L2-L3 fluid collection is not amenable to percutaneous drainage. Per, Dr. Dozier, recommend treating conservatively with IV Abx. - Neurosx, Dr. Pablo & Dr. Ying MELISSA made aware of Dr. Dozier recommendations. Both recommend pt receive 6 weeks fo IV Abx for treatment. - Cardiology consulted, Dr. Carranza. Per cardiology, no vegetation seen on echo. Therefore will defer getting MELQUIADES at this time - Flexeril 10 mg po TID - Ultram 50mg PO TID prn pain - blood cultures negative x 24 hours - f/u official echo report - HIV negative - Low procal - Normal HgbA1c - Quantiferon negative - Ceretec scan positve for L2-L3 level Prophylaxis - Pepcid 20 mg po qd - Heparin SC q12 - SCDs All orders and management per Dr. Knutson
[2017-06-10] MEDS ORDERED: Cefepime IV 1 gm in Dextrose 1 GM/50 ML BAG IVPB SCH (18:00)
[2017-06-10] MEDS: Telavancin Hydrochloride 750 MG in Sodium Chloride 0.9% 100 ML IVPB SCH (19:12)
--- NOTE | 2017-06-10 19:20 | CON ---
DATE: ATTENDING PHYSICIAN: Zaheer Knutson MD The patient is in room number 353, bed 2. REASON FOR CONSULTATION: Back pain. CHIEF COMPLAINT: The patient was brought in to [facility] Emergency Room as per the advice of his own orthopedic surgeon because of his abnormal MRI of the back. HISTORY OF PRESENT ILLNESS: Mr. Hola Almendarez is a 51-year-old right-handed male presenting with abrupt onset of lower back pain on lifting the water bottle in the store. He came to the emergency room being worked up and sent home. The patient's pain was intensified, he could not able to tolerate after which he came to the emergency room again. The patient did have x-rays and he was advised to see orthopedic surgeon. He went to see the orthopedic surgeon, and he did schedule an MRI of the back as well as treated with Robaxin and physical therapy. MRI of the lumbosacral spine showed possible epidural abscess and he was advised to come to the emergency room on emergency basis. At present, he is complaining of lower back around the hip region, radiating on either side of the lumbar region. Not radiating to his neck. Radiating down to his legs. No tingling. No numbness of his lower extremities. No history of bowel and bladder incontinence. However, he is complaining of constipation. No sexual dysfunction since this happened. PAST MEDICAL HISTORY: He did have lumbar radiculopathy being treated by ma more than 15 years ago. No recent travel. No history of infection and no history of fall. Never been treated for TB in the past. PERSONAL HISTORY: Denies smoking or alcohol use. REVIEW OF SYSTEMS A 12-point system being reviewed. From neuro, the patient did have lower back pain. PHYSICAL EXAMINATION: VITAL SIGNS: Blood pressure 113/70, mean artery pressure 84, respiratory rate 16, temperature afebrile. NECK: Supple. No carotid bruits. HEART: Sounds regular. CHEST: Fair air entry. EXTREMITIES: No edema in legs. NEUROLOGIC: Mental status examination: He is awake, alert, and oriented to person, place, and time. Speech is clear. Naming, repetition, fluency, and comprehension all within normal. Cranial nerve examination: Visual field intact. Pupils reactive to light. Extraocular movement normal. No nystagmus. No facial sensory deficit. No facial asymmetry. Hearing is normal. Tongue is midline. Good gag. Motor examination: Outstretched hands with eyes closed, no drift noted. Power is symmetric on either side. Deep tendon reflexes: Biceps, brachialis, triceps, 2+ on either side. Both knees are 2+. Both ankles are 2+. Plantars are downgoing. Sensory examination: No evidence of dermatomal sensory loss. Examination of the spine: Mid lumbar region tenderness. No paraspinal muscle tenderness. Gait is normal. Cerebral functions are normal. The patient did have a nuclear scan suggestive of infectious process over the L1-L2 region. Outside MRI of the lumbosacral spine also showed evidence of diskitis. CONCLUSION: Mr. Hola Almendarez has been presenting with intense lower back pain with preceding heavy lifting consistent with diskitis. Current examination does not show any long track sign except possible lumbar radiculopathy on either side consistent with lumbar stenosis. RECOMMENDATIONS: 1. IV antibiotic as per Infectious Disease. 2. Hydration. 3. The patient is scheduled to have OR for abscess drainage. The patient's condition has been well discussed with him. He agreed with my plan of management. Justino Humphrey MD
[2017-06-11 07:41] LABS: BASO # 0.1 K/uL (0.0-0.2); BASO % 0.6 % (0.0-2.0); EOS # 0.3 K/uL (0.0-0.7); EOS % 2.9 % (0.0-4.0); HEMOGLOBIN 14.1 g/dL (12.0-18.0); LYMPH # 1.4 K/uL (1.0-4.3); LYMPH % 15.2 % (20.0-40.0); MEAN CELL VOLUME 88.4 fL (80.0-94.0); MEAN CORPUSCULAR HEMOGLOBIN 30.8 pg (27.0-31.0); MEAN CORPUSCULAR HGB CONC 34.8 g/dL (33.0-37.0); MEAN PLATELET VOLUME 7.9 fL (7.2-11.7); MONO # 1.2 K/uL (0.0-0.8); MONO % 13.2 % (0.0-10.0); NEUT # 6.4 K/uL (1.8-7.0); NEUT % 68.1 % (50.0-75.0); RBC 4.58 Mil/uL (4.40-5.90); RED CELL DISTRIBUTION WIDTH 13.3 % (11.5-14.5); WHITE BLOOD COUNT 9.4 K/uL (4.8-10.8)
[2017-06-11 08:00] LABS: ALB/GLOB RATIO 1.1 (1.0-2.1); ALBUMIN 4.2 g/dL (3.5-5.0); ALT/SGPT 31 U/L (21-72); AST/SGOT 42 U/L (17-59); BLOOD UREA NITROGEN 7 mg/dL (9-20); CALCIUM 9.8 mg/dl (8.6-10.4); GFR AFRICAN-AMERICAN > 60; GFR NON-AFRICAN AMERICAN > 60
[2017-06-11] MEDS ORDERED: cefTRIAXone 2 GM in Sodium Chloride 0.9% 100 ML IVPB SCH (10:00)
--- NOTE | 2017-06-11 11:17 | PN ---
DATE: 06/11/2017 NEUROLOGICAL PROBLEM: Diskitis secondary to his strain. VITAL SIGNS: Blood pressure 133/83, mean arterial pressure of 110, respiratory rate 20, and temperature 97.7, pulse rate 85 and regular. The patient is comfortably walking. However, he admitted severe pain even after . The pain is radiating down to his thighs on both sides. The patient's examination is unchanged. No long tract sign expect his subjective radicular pain around his waist and anterior aspect of his thigh, all consistent with his lumbar stenosis with L2 radiculopathy on either side from his focal pathology in lumbar spine. His interventional procedures have been on hold due to his too small to aspirate his possible question of epidural abscess. The patient does not show any toxic sign from epidural abscess. From neurological point of view, probably posttraumatic inflammatory changes are seen in his lumbar spine, which can be controlled with prophylactic antibiotics and pain management. 1. Lumbar support. 2. Antibiotics as per ID's recommendation. 3. Gabapentin added with muscle relaxant for his pain control. If medically stable, the patient can be discharged and should follow up with me as an outpatient. Justino Humphrey MD
--- NOTE | 2017-06-11 11:46 | CP.PCM.PN ---
Subjective - Date & Time of Evaluation Date of Evaluation: 06/11/17 Time of Evaluation: 09:00 - Subjective Subjective: seen on rounds iv rx arranged Objective - Vital Signs/Intake and Output Vital Signs (last 24 hours): Temp Pulse Resp BP Pulse Ox 98.3 F 112 H 20 129/89 100 06/11/17 07:02 06/11/17 07:02 06/11/17 07:02 06/11/17 07:02 06/11/17 07:02 Intake and Output: 06/11/17 06/11/17 06:59 18:59 Intake Total 830 250 Balance 830 250 - Medications Medications: Current Medications Cyclobenzaprine HCl (Flexeril) 10 mg PO TID PRN PRN Reason: Pain, severe (8-10) Last Admin: 06/05/17 09:15 Dose: 10 mg Docusate Sodium (Colace) 100 mg PO BID [facility] Last Admin: 06/11/17 09:44 Dose: 100 mg Famotidine (Pepcid) 20 mg PO DAILY [facility] Last Admin: 06/11/17 09:44 Dose: 20 mg Gabapentin (Neurontin) 300 mg PO BID [facility] Last Admin: 06/11/17 09:44 Dose: 300 mg Vancomycin/Sodium Chloride (Vancomycin 1 Gm/Ns 200 Ml) 1 gm in 200 mls @ 166.7 mls/hr IVPB Q24H [facility] PRN Reason: Protocol Stop: 06/15/17 16:01 Last Admin: 06/10/17 16:58 Dose: 166.7 mls/hr Ceftriaxone Sodium 2 gm/ (Sodium Chloride) 100 mls @ 100 mls/hr IVPB DAILY [facility] PRN Reason: Protocol Last Admin: 06/11/17 09:43 Dose: 100 mls/hr Telavancin 750 mg/ Sodium (Chloride) 100 mls @ 100 mls/hr IVPB Q24H [facility] PRN Reason: Protocol Last Admin: 06/10/17 19:12 Dose: 100 mls/hr Tramadol HCl (Ultram) 50 mg PO Q4H PRN PRN Reason: Pain, moderate (4-7) Last Admin: 06/10/17 20:35 Dose: 50 mg - Labs Labs: 06/11/17 07:34 06/11/17 07:34 PT 15.6 SECONDS (9.7-12.2) H 06/10/17 11:49 INR 1.4 06/10/17 11:49 APTT 36 SECONDS (21-34) H 06/10/17 11:49 - Constitutional Appears: Non-toxic, Chronically Ill - Head Exam Head Exam: NORMOCEPHALIC - Eye Exam Eye Exam: PERRL - ENT Exam ENT Exam: Mucous Membranes Dry - Neck Exam Neck Exam: absent: Lymphadenopathy - Respiratory Exam Respiratory Exam: Decreased Breath Sounds - Cardiovascular Exam Cardiovascular Exam: REGULAR RHYTHM - GI/Abdominal Exam GI & Abdominal Exam: Distended - Rectal Exam Rectal Exam: Deferred - Exam Exam: NORMAL INSPECTION - Extremities Exam Extremities Exam: absent: Pedal Edema - Back Exam Back Exam: absent: CVA tenderness (L), CVA tenderness (R) Assessment and Plan (1) Osteomyelitis of lumbar vertebra Status: Acute (2) Low back strain Status: Acute - Assessment and Plan (Free Text) Assessment: tumor markers nneg cont iv rx- no bx possible at this time
--- NOTE | 2017-06-11 14:57 | CP.PCM.PN ---
Subjective - Date & Time of Evaluation Date of Evaluation: 06/11/17 Time of Evaluation: 14:57 - Subjective Subjective: -FOLLOW UP WITH DR. Jv RICHARDS IN THE OFFICE ON 06/14/17---CALL THE OFFICE FOR AN APPOINTMENT TIME. -CALL DR. CHEN'S OFFICE TOMORROW TO ARRANGE A FOLLOW UP VISIT. ALSO INQUIRE ABOUT THE LUMBAR BRACE (SIZING, ORDERING, SOFT VERSUS HARD BRACE). -[facility] 6 [facility]EEKS (STAR TOMORROW, 06/12/17 AND LAST DAY WILL BE ON 07/24/17) FOR IV ANTIBIOTICS: TELAVANCIN 750 MG IV ONCE A DAY; ROCEPHIN 2 GM IV ONCE A DAY. -TAKE ALL MEDICATIONS EXACTLY PRESCRIBED. IF BY SATURDAY YOU FEEL THOUGH YOU NEED SOMETHING STRONGER FOR PAIN, DR. Jv RICHARDS MAY PRESCRIBE ANOTHER MEDICATION FOR YOU. 1) GABAPENTIN 300 MG (TAKE ONE TABLET) TWICE A DAY (MORNING AND EVENING). 2) ROBAXIN 750 MG (TAKE ONE TABLET) THREE TIMES A DAY ONLY IF NEEDED FOR MUSCLE PAIN/SPASM. 3) COLACE (STOOL SOFTENER; MAY TAKE ONE TABLET) 2-3 TIMES A DAY. 4) MIRALAX POWDER (TAKE 1 PACKET AND MIX IN WATER DIRECTED ON THE MEDICATION PACKET) ONCE A DAY ONLY IF NEEDED FOR CONSTIPATION. -FOR FURTHER CONCERNS OR QUESTIONS, CONTACT DR. RICHARDS. Objective - Vital Signs/Intake and Output Vital Signs (last 24 hours): Temp Pulse Resp BP Pulse Ox 98.3 F 112 H 20 129/89 100 06/11/17 07:02 06/11/17 07:02 06/11/17 07:02 06/11/17 07:02 06/11/17 07:02 Intake and Output: 06/11/17 06/11/17 06:59 18:59 Intake Total 830 830 Balance 830 830 - Medications Medications: Current Medications Cyclobenzaprine HCl (Flexeril) 10 mg PO TID PRN PRN Reason: Pain, severe (8-10) Last Admin: 06/05/17 09:15 Dose: 10 mg Docusate Sodium (Colace) 100 mg PO BID [facility] Last Admin: 06/11/17 09:44 Dose: 100 mg Famotidine (Pepcid) 20 mg PO DAILY [facility] Last Admin: 06/11/17 09:44 Dose: 20 mg Gabapentin (Neurontin) 300 mg PO BID [facility] Last Admin: 06/11/17 09:44 Dose: 300 mg Ceftriaxone Sodium 2 gm/ (Sodium Chloride) 100 mls @ 100 mls/hr IVPB DAILY [facility] PRN Reason: Protocol Last Admin: 06/11/17 09:43 Dose: 100 mls/hr Telavancin 750 mg/ Sodium (Chloride) 100 mls @ 100 mls/hr IVPB Q24H [facility] PRN Reason: Protocol Last Admin: 06/10/17 19:12 Dose: 100 mls/hr Tramadol HCl (Ultram) 50 mg PO Q4H PRN PRN Reason: Pain, moderate (4-7) Last Admin: 06/10/17 20:35 Dose: 50 mg - Labs Labs: 06/11/17 07:34 06/11/17 07:34 PT 15.6 SECONDS (9.7-12.2) H 06/10/17 11:49 INR 1.4 06/10/17 11:49 APTT 36 SECONDS (21-34) H 06/10/17 11:49
--- NOTE | 2017-06-11 15:20 | CP.PCM.PN ---
Subjective - Date & Time of Evaluation Date of Evaluation: 06/11/17 Time of Evaluation: 07:20 - Subjective Subjective: clinically same Objective - Vital Signs/Intake and Output Vital Signs (last 24 hours): Temp Pulse Resp BP Pulse Ox 98.3 F 112 H 20 129/89 100 06/11/17 07:02 06/11/17 07:02 06/11/17 07:02 06/11/17 07:02 06/11/17 07:02 Intake and Output: 06/11/17 06/11/17 06:59 18:59 Intake Total 830 830 Balance 830 830 - Medications Medications: Current Medications Cyclobenzaprine HCl (Flexeril) 10 mg PO TID PRN PRN Reason: Pain, severe (8-10) Last Admin: 06/05/17 09:15 Dose: 10 mg Docusate Sodium (Colace) 100 mg PO BID [facility] Last Admin: 06/11/17 09:44 Dose: 100 mg Famotidine (Pepcid) 20 mg PO DAILY [facility] Last Admin: 06/11/17 09:44 Dose: 20 mg Gabapentin (Neurontin) 300 mg PO BID [facility] Last Admin: 06/11/17 09:44 Dose: 300 mg Ceftriaxone Sodium 2 gm/ (Sodium Chloride) 100 mls @ 100 mls/hr IVPB DAILY [facility] PRN Reason: Protocol Last Admin: 06/11/17 09:43 Dose: 100 mls/hr Telavancin 750 mg/ Sodium (Chloride) 100 mls @ 100 mls/hr IVPB Q24H [facility] PRN Reason: Protocol Last Admin: 06/10/17 19:12 Dose: 100 mls/hr Tramadol HCl (Ultram) 50 mg PO Q4H PRN PRN Reason: Pain, moderate (4-7) Last Admin: 06/10/17 20:35 Dose: 50 mg - Labs Labs: 06/11/17 07:34 06/11/17 07:34 PT 15.6 SECONDS (9.7-12.2) H 06/10/17 11:49 INR 1.4 06/10/17 11:49 APTT 36 SECONDS (21-34) H 06/10/17 11:49 - Constitutional Appears: Well - Head Exam Head Exam: ATRAUMATIC, NORMAL INSPECTION, NORMOCEPHALIC - Eye Exam Eye Exam: EOMI, Normal appearance, PERRL Pupil Exam: NORMAL ACCOMODATION, PERRL - ENT Exam ENT Exam: Mucous Membranes Moist, Normal Exam - Neck Exam Neck Exam: Full ROM, Normal Inspection. absent: Lymphadenopathy - Respiratory Exam Respiratory Exam: Decreased Breath Sounds - Cardiovascular Exam Cardiovascular Exam: REGULAR RHYTHM, +S1, +S2 - GI/Abdominal Exam GI & Abdominal Exam: Soft, Diminished Bowel Sounds - Rectal Exam Rectal Exam: Deferred Assessment and Plan (1) Osteomyelitis of lumbar vertebra Status: Acute (2) Low back strain Status: Acute (3) Spinal stenosis of lumbar region Status: Acute
[2017-06-11] MEDS: Telavancin Hydrochloride 750 MG in Sodium Chloride 0.9% 100 ML IVPB SCH (16:08)
[2017-06-11 16:54] VITALS: BP 128/87; PULSE 111; TEMP 97.9; O2SAT 97
== END 2017-06-11 18:24 | disposition home or self-care (01) | DRG 95 ==
LOC: C.ER 17:59 → C.9E 19:15 → C.3T 20:18
PROVIDERS: ADMIT Internal Medicine Nephrology; ATTEND Internal Medicine Nephrology
PROC: 02HV33Z Insertion of Infusion Device into Superior Vena Cava, Percutaneous Approach (ICD-10-PCS; principal; 2017-06-10)
DX: G06.1 Intraspinal abscess and granuloma (principal); M46.26 Osteomyelitis of vertebra, lumbar region; M46.46 Discitis, unspecified, lumbar region; M48.061 Spinal stenosis, lumbar region without neurogenic claudication; M54.16 Radiculopathy, lumbar region; S39.012A Strain of muscle, fascia and tendon of lower back, initial encounter; K59.00 Constipation, unspecified; X50.0XXA Overexertion from strenuous movement or load, initial encounter; Z90.49 Acquired absence of other specified parts of digestive tract

== ENCOUNTER 2018-02-05 06:45 | Day surgery (SDC) | payer BC, OTHER ==
[2017-08-11 09:27] VITALS: BMI 22.3
[2018-02-05] MEDS ORDERED: Propofol 10 mg/ml Inj (20 ML) ONE ×2 (07:57→08:52)
[2018-02-05] MEDS ORDERED: Midazolam 2 MG/2 ML VIAL ONE (07:57)
[2018-02-05] MEDS ORDERED: Lidocaine Hydrochloride 5 ML INJ ONE (08:18)
[2018-02-05 09:16] VITALS: TEMP 97.8; O2SAT 100
[2018-02-05 10:34] VITALS: BP 121/67; PULSE 67; RESP 13
== END 2018-02-05 10:20 | disposition home or self-care (01) ==
LOC: C.ENDO 06:45
PROVIDERS: ATTEND Internal Medicine Gastroenterology
DX: Z12.11 Encounter for screening for malignant neoplasm of colon (principal); R13.10 Dysphagia, unspecified; K29.30 Chronic superficial gastritis without bleeding; K21.0 Gastro-esophageal reflux disease with esophagitis; K64.1 Second degree hemorrhoids
CPT/HCPCS: 43239; 45378; 88305; J2001; J2250; J2704; J7040

== ENCOUNTER 2018-03-07 08:31 | Outpatient (CLI) | payer OTHER | END 2018-03-07 08:32 | disposition home or self-care (01) | LOC: C.CARD 08:31 | DX: R06.02 Shortness of breath (principal) ==